=== PATIENT | female | born 1940 | race Caucasian/White ===

== ENCOUNTER → 2016-08-17 | Outpatient (CLI) | payer OTHER ==
[~2016-08-17] MED LIST: ACET325T30 PO; AMOX1TAB43 PO; ASPCH81X PO; ASPI81TA28 PO; AZIT250T PO; CHOLCAP5 PO; ESCI10TA17 PO; FOLI1TAB7 PO; L-METAB PO; LPR25 PO; PANT1TAB48 PO; POTA10CA28 PO; QUET1TAB30 PO; QUET1TAB7 PO; SIMV40TA2 PO; SULF800T23 PO; ZNTT/150 PO
[2016-08-17 12:39] LABS: URINE APPEARANCE CLEAR (CLEAR); URINE BILIRUBIN NEG (NEG); URINE COLOR YELLOW; URINE NITRITE POS (NEG); URINE SPECIFIC GRAVITY 1.025 (1.000-1.030); UROBILINOGEN NEG (NEG)
[2016-08-17 12:40] LABS: MANUAL MICROSCOPIC REQUIRED? NO; REVIEW REQ? YES
== END ==
LOC: C.LABCC 11:10
PROVIDERS: ATTEND Internal Medicine
DX: R41.82 Altered mental status, unspecified (principal)

== ENCOUNTER 2016-08-22 10:26 | Emergency (ER) | payer OTHER ==
[~2016-08-22] VITALS: Ht 162.6 cm; Wt 50.9 kg
[~2016-08-22 10:26] MED LIST changes: -ACET325T30 PO; -AMOX1TAB43 PO; -ASPCH81X PO; -AZIT250T PO; -CHOLCAP5 PO; -ESCI10TA17 PO; -L-METAB PO; -QUET1TAB30 PO; -SIMV40TA2 PO; -SULF800T23 PO; -ZNTT/150 PO
[2016-08-22 10:30] VITALS: TEMP 37.6; O2SAT 94
[2016-08-22] MEDS ORDERED: SIMV40TA2 PO (10:52)
[2016-08-22] MEDS ORDERED: ASPCH81X PO (10:52)
[2016-08-22] MEDS ORDERED: POTA10CA28 PO (10:52)
[2016-08-22] MEDS ORDERED: ESCI10TA17 PO (10:52)
[2016-08-22] MEDS ORDERED: ACET325T30 PO (10:52)
[2016-08-22] MEDS ORDERED: QUET1TAB30 PO (10:52)
[2016-08-22] MEDS ORDERED: L-METAB PO (10:52)
[2016-08-22] MEDS ORDERED: ZNTT/150 PO (10:52)
[2016-08-22] MEDS ORDERED: CHOLCAP5 PO (10:52)
[2016-08-22] MEDS ORDERED: SULF800T23 PO (10:52)
[2016-08-22 11:15] VITALS: Ht 162.6 cm; Wt 50.9 kg
[2016-08-22 11:28] LABS: BASO % 0.3 %; BASO ABS # 0.02 K/uL (0-0.2); COMPLETE YES; EOS % 0.2 %; HEMATOCRIT 35.2 % (37-47); IG% 0.2 %; LYMPH % 25.2 %; LYMPH ABS # 1.67 K/uL (1.2-3.4); MEAN CORPUSCULAR HEMOGLOBIN 31.3 pg (25-34); MEAN CORPUSCULAR HGB CONC 34.4 g/dl (32-36); MEAN PLATELET VOLUME 10.7 fL (7.4-10.4); MONO % 11.3 %; NEUT % 62.8 %; PLATELET COUNT 199 K/uL (130-400); RED BLOOD COUNT 3.87 M/uL (4.2-5.4); WHITE BLOOD COUNT 6.62 K/uL (4.8-10.8)
--- NOTE | 2016-08-22 11:30 | DIAGNOSTIC IMAGING REPORT ---
SINGLE VIEW CHEST CLINICAL HISTORY: Sepsis. FINDINGS: An AP, portable, upright chest radiograph is compared to study dated 10/10/2013. The examination is degraded by portable technique and patient rotation. The heart is top normal for projection and there is atherosclerotic calcification of the thoracic aorta. The pulmonary vasculature is noncongested. Chronic interstitial thickening is unchanged. No airspace consolidation, large pleural effusion, or pneumothorax is seen. Apical scarring is observed. The skeletal structures are osteopenic. Degenerative change and scoliosis are noted in the thoracic spine. IMPRESSION: No acute cardiopulmonary abnormality. Electronically signed by: Royal Do M.D. 08/22/2016 11:29 AM Dictated Date/Time: 08/22/2016 11:28 AM
[2016-08-22 11:38] LABS: INR 1.1 (0.9-1.1); PARTIAL THROMBOPLASTIN RATIO 1.2; PROTHROMBIN TIME (PATIENT) 11.4 SECONDS (9.0-12.0)
[2016-08-22 11:47] LABS: BUN/CREATININE RATIO 20.2 (10-20); CALCIUM 8.9 mg/dl (8.5-10.1); CREATININE 0.8 mg/dl (0.60-1.20); POTASSIUM 3.9 mmol/L (3.5-5.1)
[2016-08-22 11:50] LABS: ALB/GLOB RATIO 0.8 (0.9-2)
--- NOTE | 2016-08-22 11:54 | DIAGNOSTIC IMAGING REPORT ---
CT OF THE HEAD WITHOUT CONTRAST CLINICAL HISTORY: Confusion. Evaluate for cerebrovascular accident. COMPARISON STUDY: Head CT December 14, 2013. CT DOSE: 998.18 mGy.cm TECHNIQUE: Helical axial images of the head were obtained without IV contrast. Automated exposure control was utilized for the study. FINDINGS: This exam is mildly compromised by motion artifact. No acute intracranial hemorrhage, midline shift or mass effect is present. Ventricular system is stable. Basilar cisterns are patent. There are no extra-axial collections. White matter hypodensity suggests small vessel disease. Equivocal loss of monroe-white differentiation within the left frontoparietal region is probably artifactual. There is no mass effect. There are secretions within the mucosal thickening of the left sphenoid sinus. There is mild mucosal thickening of the ethmoid sinuses. Calvarium is suboptimally assessed due to motion artifact but no calvarial fractures are identified. IMPRESSION: 1. No acute intracranial hemorrhage or mass effect. 2. Equivocal loss of monroe-white differentiation within the left frontoparietal region. This is probably artifactual although an acute infarct could appear similar. 3. Left sphenoid sinusitis which may be acute. Electronically signed by: Valente Segura M.D. 08/22/2016 11:53 AM Dictated Date/Time: 08/22/2016 11:46 AM
--- NOTE | 2016-08-22 12:20 | EMERGENCY ROOM VISIT NOTE ---
History Report prepared by Aldo: Mirlande García Under the Supervision of: Dr. Janette Jacobs D.O. First contact with patient: 10:56 Chief Complaint: CONFUSION Stated Complaint: CONFUSION Nursing Triage Summary: Patient arrived by ambulance ALS from [facility]. Patient sent to ED for evaluation of decline in mental status. Patient does have severe dementia and is usually verbal but does not answer questions appropriatly, per staff she is less verbal today. Patient diagnosed with uti on Thursday and is currently on Bactrim for that. History of Present Illness The patient is a 75 year old female who presents to the Emergency Room via ALS from [facility] with complaints of focal weakness starting today. The patient is currently being treated for a urinary tract infection. She was started on Bactrim 4 days ago. She normally has frequent UTIs at this time of the year. The patient has not been answering questions appropriately which is normal for her. She has been favoring her left side today. Her mouth being constantly open is abnormal for her. As per EMS, her BSG was 98. She has been losing weight over the past few months. Her appetite normally fluctuates. She has had several TIA in the past few months. HPI is limited secondary to history of dementia. Additional history is obtained as per son who is at bedside. Source of History: family (son) History Limited By: dementia Onset: today Position: other (global) Quality: other (focal weakness) Review of Systems ROS is limited secondary to history of dementia. Past Medical & Surgical Medical Problems: (1) Benign hypertension (2) Bipolar disorder (3) Depressive disorder (4) Generalized non-convulsive epilepsy (5) Hypertension Nos Family History Hypertension Social History Smoking Status: Unknown if Ever Smoked Alcohol Use: none Marital Status: Housing Status: skilled nursing Occupation Status: retired Current/Historical Medications Scheduled Aspirin (Aspirin Chewable), 81 MG PO QAM Cholecalciferol (Vitamin D3), 5,000 UNITS PO QAM Escitalopram (Lexapro), 10 MG PO QAM L-Methylfolate W/ Cyanocobalam (Cerefolin), 1 TAB PO QAM Potassium Chloride (Micro-K Ext Rel), 10 MEQ PO QAM Quetiapine Fumarate (Seroquel), 12.5 MG PO HS Ranitidine (Zantac), 150 MG PO HS Simvastatin (Zocor), 40 MG PO QPM Sulfamethoxazole-Trimethoprim (Bactrim Ds 800MG/160MG), 1 TAB PO BID Scheduled PRN Acetaminophen (Acetaminophen), 650 MG PO Q6H PRN for Pain or Fever Allergies Coded Allergies: No Known Allergies (Unverified , 10/10/13) Physical Exam Vital Signs Date Time Temp Pulse Resp B/P Pulse Ox O2 Delivery O2 Flow Rate FiO2 08/22/16 17:05 84 18 127/84 93 Room Air 08/22/16 15:01 88 16 134/88 97 Room Air 08/22/16 13:35 91 08/22/16 13:01 93 18 142/73 97 Room Air 08/22/16 12:18 102 18 141/85 94 Room Air 08/22/16 10:30 37.6 92 20 127/80 94 Room Air 08/22/16 10:30 94 Room Air Physical Exam HEENT: Head - normocephalic and atraumatic. Pupils are equal, round, and reactive to light. Extraocular eye muscles are intact and sclera are anicteric. Nose - moist nasal mucosa without discharge. Mouth - moist buccal mucosa. Oropharynx is nonerythematous and there is no tonsillar exudate or edema noted. Neck: Supple; no JVD or cervical lymphadenopathy Heart: Regular rate and rhythm. There is a normal S1 and S2 with no murmurs, clicks, or gallops appreciated. Lungs: Clear to auscultation bilaterally with no wheezes, rales, or rhonchi. Abdomen: Soft, completely nontender, nondistended, with good bowel sounds. There are no palpable pulsatile masses or hepatosplenomegaly. There is no guarding, rigidity, or rebound noted. Extremities: No evidence of cyanosis, clubbing, or edema. There are easily palpable peripheral pulses. Tremulous. Neuro: Muscle strength is 4/5 in all 4 extremities. The patient has equal credit risk analyst strength and equal pedal push and pull. There are no cerebellar signs. Patient' s mouth seems to be unusually open. Medical Decision & Procedures ER Provider Diagnostic Interpretation: X-ray results as stated below per interpretation by me and the radiologist: SINGLE VIEW CHEST CLINICAL HISTORY: Sepsis. FINDINGS: An AP, portable, upright chest radiograph is compared to study dated 10/10/2013. The examination is degraded by portable technique and patient rotation. The heart is top normal for projection and there is atherosclerotic calcification of the thoracic aorta. The pulmonary vasculature is noncongested. Chronic interstitial thickening is unchanged. No airspace consolidation, large pleural effusion, or pneumothorax is seen. Apical scarring is observed. The skeletal structures are osteopenic. Degenerative change and scoliosis are noted in the thoracic spine. IMPRESSION: No acute cardiopulmonary abnormality. Electronically signed by: Ryoal Do M.D. 08/22/2016 11:29 AM Dictated Date/Time: 08/22/2016 11:[address] results as stated below per my review and the radiologist's interpretation: CT OF THE HEAD WITHOUT CONTRAST CLINICAL HISTORY: Confusion. Evaluate for cerebrovascular accident. COMPARISON STUDY: Head CT December 14, 2013. CT DOSE: 998.18 mGy.cm TECHNIQUE: Helical axial images of the head were obtained without IV contrast. Automated exposure control was utilized for the study. FINDINGS: This exam is mildly compromised by motion artifact. No acute intracranial hemorrhage, midline shift or mass effect is present. Ventricular system is stable. Basilar cisterns are patent. There are no extra-axial collections. White matter hypodensity suggests small vessel disease. Equivocal loss of monroe-white differentiation within the left frontoparietal region is probably artifactual. There is no mass effect. There are secretions within the mucosal thickening of the left sphenoid sinus. There is mild mucosal thickening of the ethmoid sinuses. Calvarium is suboptimally assessed due to motion artifact but no calvarial fractures are identified. IMPRESSION: 1. No acute intracranial hemorrhage or mass effect. 2. Equivocal loss of monroe-white differentiation within the left frontoparietal region. This is probably artifactual although an acute infarct could appear similar. 3. Left sphenoid sinusitis which may be acute. Electronically signed by: Valente Segura M.D. 08/22/2016 11:53 AM Dictated Date/Time: 08/22/2016 11:46 AM Laboratory Results 08/22/16 11:00 Red Blood Count 3.87, Mean Corpuscular Volume 91.0, Mean Corpuscular Hemoglobin 31.3, Mean Corpuscular Hemoglobin Concent 34.4, Mean Platelet Volume 10.7, Neutrophils (%) (Auto) 62.8, Lymphocytes (%) (Auto) 25.2, Monocytes (%) (Auto) 11.3, Eosinophils (%) (Auto) 0.2, Basophils (%) (Auto) 0.3, Neutrophils # (Auto ) 4.16, Lymphocytes # (Auto) 1.67, Monocytes # (Auto) 0.75, Eosinophils # (Auto ) 0.01, Basophils # (Auto) 0.02 08/22/16 11:00 Test 08/22/16 10:59 08/22/16 11:00 08/22/16 11:15 08/22/16 12:10 Bedside Glucose 98 mg/dl (70-90) White Blood Count 6.62 K/uL (4.8-10.8) Red Blood Count 3.87 M/uL (4.2-5.4) Hemoglobin 12.1 g/dL (12.0-16.0) Hematocrit 35.2 % (37-47) Mean Corpuscular Volume 91.0 fL (80-100) Mean Corpuscular Hemoglobin 31.3 pg (25-34) Mean Corpuscular Hemoglobin Concent 34.4 g/dl (32-36) Platelet Count 199 K/uL (130-400) Mean Platelet Volume 10.7 fL (7.4-10.4) Neutrophils (%) (Auto) 62.8 % Lymphocytes (%) (Auto) 25.2 % Monocytes (%) (Auto) 11.3 % Eosinophils (%) (Auto) 0.2 % Basophils (%) (Auto) 0.3 % Neutrophils # (Auto) 4.16 K/uL (1.4-6.5) Lymphocytes # (Auto) 1.67 K/uL (1.2-3.4) Monocytes # (Auto) 0.75 K/uL (0.11-0.59) Eosinophils # (Auto) 0.01 K/uL (0-0.5) Basophils # (Auto) 0.02 K/uL (0-0.2) RDW Standard Deviation 43.4 fL (36.4-46.3) RDW Coefficient of Variation 13.1 % (11.5-14.5) Immature Granulocyte % (Auto) 0.2 % Immature Granulocyte # (Auto) 0.01 K/uL (0.00-0.02) Prothrombin Time 11.4 SECONDS (9.0-12.0) Prothromb Time International Ratio 1.1 (0.9-1.1) Activated Partial Thromboplast Time 30.9 SECONDS (21.0-31.0) Partial Thromboplastin Ratio 1.2 Anion Gap 11.0 mmol/L (3-11) Est Creatinine Clear Calc Drug Dose 48.8 ml/min Estimated GFR () 83.6 Estimated GFR (Non- 72.1 BUN/Creatinine Ratio 20.2 (10-20) Calcium Level 8.9 mg/dl (8.5-10.1) Total Bilirubin 0.4 mg/dl (0.2-1) Aspartate Amino Transf (AST/SGOT) 25 U/L (15-37) Alanine Aminotransferase (ALT/SGPT) 23 U/L (12-78) Alkaline Phosphatase 60 U/L (45-117) Total Protein 7.9 gm/dl (6.4-8.2) Albumin 3.6 gm/dl (3.4-5.0) Globulin 4.3 gm/dl (2.5-4.0) Albumin/Globulin Ratio 0.8 (0.9-2) Bedside Lactic Acid Venous 1.07 mmol/L (0.90-1.70) Urine Color DK YELLOW Urine Appearance CLEAR (CLEAR) Urine pH 6.0 (4.5-7.5) Urine Specific [place] 1.028 (1.000-1.030) Urine Protein NEG (NEG) Urine Glucose (UA) NEG (NEG) Urine Ketones TRACE (NEG) Urine Occult Blood NEG (NEG) Urine Nitrite NEG (NEG) Urine Bilirubin NEG (NEG) Urine Urobilinogen NEG (NEG) Urine Leukocyte Esterase NEG (NEG) Urine WBC (Auto) 1-5 /hpf (0-5) Urine RBC (Auto) 0-4 /hpf (0-4) Urine Hyaline Casts (Auto) 1-5 /lpf (0-5) Urine Epithelial Cells (Auto) 5-10 /lpf (0-5) Urine Bacteria (Auto) NEG (NEG) Urine Renal Epithelial Cells /lpf (0-5) Urine Mucus PRESENT (NONE PRSENT) Laboratory results per my review. ECG Indication: weakness (focal) Rate (beats per minute): 89 Rhythm: normal sinus Findings: no acute ischemic change, no ectopy ED Course 1056: Past medical records reviewed. The patient was evaluated in room A09B. A complete history and physical exam was performed. Labs were drawn as above. A urinalysis was obtained. 1320: I reevaluated the patient who is resting comfortably. 1338: Upon reevaluation, the patient is doing well. I discussed findings and results with the patient's son and . They verbalized agreement of the treatment plan. The patient will be discharged home. 1450: I had a long conversation with the patient's and son. They explained that the patient has now been having tremors in her extremities that have been lasting for about 5-7 seconds. She does not have any seizure-like symptoms. She does not appear to be in pain. I did witness these episodes of tremors. I discussed the options of either admitting or discharging the patient. The patient's and son agreed that they did not want any additional work up done. The patient will be discharged back to [facility]. We did sit the patient more upright. She was easily able to eat and drink. Her symptoms now seem minimal Medical Decision This is a 75 year old female who presents to the Emergency Room with a chief complaint of focal weakness. Differential diagnosis includes but is not limited to TIA, CVA, sepsis, UTI, electrolyte abnormality, hypoglycemia. Her labs showed lactic acid of 1.07, glucose 98, normal renal function and LFTs , urinalysis was positive for ketones, normal coags, no leucocytosis, stable H& H. The patient has been explains that she does have occasional episodes where she becomes more weak than usual. She has recently finished a course of antibiotics for urinary tract infection. Urinalysis today does not appear to be infected. CT scan of the brain showed no new acute findings. The patient is resting comfortably at this time. She is not currently experiencing those episodes of tremors. I have asked that they follow-up with the PCP at [facility] if these episodes persist. The patient does ambulate without assistance to sleep. Because she seems more unsteady at this time, I recommended assistance with ambulation. Impression Primary Impression: Altered mental status Scribe Attestation The scribe's documentation has been prepared under my direction and personally reviewed by me in its entirety. I confirm that the note above accurately reflects all work, treatment, procedures, and medical decision making performed by me. Departure Information Dispostion Home / Self-Care Referrals [facility] (PCP) Forms HOME CARE DOCUMENTATION FORM, IMPORTANT VISIT INFORMATION, WORK / SCHOOL INSTRUCTIONS Patient Instructions My [facility]
[2016-08-22 12:26] LABS: URINE APPEARANCE CLEAR (CLEAR); URINE COLOR DK YELLOW; URINE NITRITE NEG (NEG); URINE SPECIFIC GRAVITY 1.028 (1.000-1.030); UROBILINOGEN NEG (NEG); ZZURINE CULT IF INDIC CATH NO
[2016-08-22 12:42] LABS: MANUAL MICROSCOPIC REQUIRED? NO; REVIEW REQ? YES; URINE BILIRUBIN NEG (NEG)
[2016-08-22 12:47] LABS: URINE MUCUS PRESENT (NONE PRSENT)
[2016-08-22 17:05] VITALS: BP 127/84; PULSE 84; O2SAT 93
== END 2016-08-22 17:15 | disposition home or self-care (01) ==
LOC: EDUNIT# 10:26 → C.EDA 10:29
DX: R41.82 Altered mental status, unspecified (principal); I10 Essential (primary) hypertension; F31.9 Bipolar disorder, unspecified; G40.909 Epilepsy, unspecified, not intractable, without status epilepticus; Z82.49 Family history of ischemic heart disease and other diseases of the circulatory system

== ENCOUNTER 2016-08-23 19:29 | Inpatient (IN) | payer OTHER ==
[~2016-08-23] VITALS: Ht 162.6 cm; Wt 46.0 kg
[~2016-08-23 19:29] MED LIST changes: +ACET325T30 PO; +ASPCH81X PO; -ASPI81TA28 PO; +CHOLCAP5 PO; +ESCI10TA17 PO; -FOLI1TAB7 PO; +L-METAB PO; -LPR25 PO; -PANT1TAB48 PO; +QUET1TAB30 PO; -QUET1TAB7 PO; +SIMV40TA2 PO; +SULF800T23 PO; +ZNTT/150 PO
[2016-08-23 19:30] VITALS: Ht 162.6 cm; Wt 46.0 kg
[2016-08-23] MEDS ORDERED: SODIUM CHLORIDE 0.9% 1000ML 1,000 ML IV STA (20:03)
[2016-08-23] MEDS ORDERED: CEFTRIAXONE SOD INJ 1 GM ADDVIAL IV STA (20:03)
--- NOTE | 2016-08-23 20:23 | DIAGNOSTIC IMAGING REPORT ---
CHEST ONE VIEW PORTABLE CLINICAL HISTORY: EVALUATE ALTERED MENTAL STATUS/WEAKNESS COMPARISON STUDY: 08/22/2016 FINDINGS: Small developing infiltrate left base. Lungs otherwise appear clear. No evidence for cardiac enlargement. IMPRESSION: Small parenchymal infiltrate left base. Electronically signed by: Adalid Berman M.D. 08/23/2016 8:22 PM Dictated Date/Time: 08/23/2016 8:22 PM
[2016-08-23 20:49] LABS: MEAN CELL VOLUME 90.2 fL (80-100); MEAN CORPUSCULAR HEMOGLOBIN 31.3 pg (25-34); MEAN CORPUSCULAR HGB CONC 34.7 g/dl (32-36); MEAN PLATELET VOLUME 10.6 fL (7.4-10.4); PLATELET COUNT 195 K/uL (130-400); RED BLOOD COUNT 3.77 M/uL (4.2-5.4); WHITE BLOOD COUNT 11.23 K/uL (4.8-10.8)
[2016-08-23 21:05] LABS: INR 1.1 (0.9-1.1); PARTIAL THROMBOPLASTIN RATIO 1.2; PROTHROMBIN TIME (PATIENT) 11.6 SECONDS (9.0-12.0)
[2016-08-23 21:10] LABS: BASO % 0.3 %; BASO ABS # 0.03 K/uL (0-0.2); COMPLETE YES; EOS % 0.2 %; IG% 0.3 %; LYMPH % 17.3 %; LYMPH ABS # 1.94 K/uL (1.2-3.4); MONO % 7.9 %
[2016-08-23 21:13] LABS: ALT/SGPT 25 U/L (12-78); AST/SGOT 32 U/L (15-37); BLOOD UREA NITROGEN 18 mg/dl (7-18); BUN/CREATININE RATIO 21.6 (10-20); CALCIUM 8.6 mg/dl (8.5-10.1); CARBON DIOXIDE 23 mmol/L (21-32); CHLORIDE 106 mmol/L (98-107); CREATININE 0.82 mg/dl (0.60-1.20); GLUCOSE 112 mg/dl (70-99); MAGNESIUM 2.1 mg/dl (1.8-2.4); POTASSIUM 3.5 mmol/L (3.5-5.1); SODIUM 139 mmol/L (136-145)
[2016-08-23 21:21] LABS: ALKALINE PHOSPHATASE 57 U/L (45-117)
--- NOTE | 2016-08-23 21:34 | DIAGNOSTIC IMAGING REPORT ---
HEAD CT NONCONTRAST CT DOSE: 843.08 mGy.cm HISTORY: Mental status change EVALUATE ALTERED MENTAL STATUS/WEAKNESS TECHNIQUE: Multiaxial CT images of the head were performed without the use of intravenous contrast. Comparison: 08/22/2016 Findings: Fluid level within left maxillary sinus. Scattered areas of chronic encephalomalacia and atrophic change. No acute or interval process as compared to the prior study. Considerable chronic small vessel change. No evidence for acute intracranial hemorrhage. Impression: 1. Age-related atrophy and chronic small vessel change. 2. No acute intracranial abnormality. 3. Acute left maxillary sinusitis . Chronic sphenoid sinus mucosal thickening Electronically signed by: Adalid Berman M.D. 08/23/2016 9:32 PM Dictated Date/Time: 08/23/2016 9:28 PM
[2016-08-23] MEDS ORDERED: PIPERACILLIN/TAZOBACTAM 4.5 GM/100ML D5W IV STA (21:56)
[2016-08-23] MEDS ORDERED: LEVAQUIN 750MG / 150ML D5W IV STA (21:56)
--- NOTE | 2016-08-23 22:21 | EMERGENCY ROOM VISIT NOTE ---
History Report prepared by Aldo: Jl Chiang Under the Supervision of: Dr. Jose D Gregorio D.O. First contact with patient: 19:25 Stated Complaint: SEIZURE History of Present Illness The patient is a 75 year old female who presents to the Emergency Room via ambulance from [facility] with complaints of a sudden seizure beginning just prior to arrival. As per EMS, the patient was given 4 Ativan. He notes the patient had an initial pulse ox of 90 and was placed on 4L NC of oxygen. EMS states the patient then had a pulse ox of around 98. He notes the patient had a BSG of 89. EMS states the patient was seen in the ED last night for a UTI, and her noticed tremors at that time last night. EMS notes the patient did not have any post ictal periods, but she fell asleep after receiving the Ativan. The history is limited secondary to the patient's altered mental status. Source of History: EMS History Limited By: AMS Onset: just prior to arrival Position: other (global) Quality: other (seizure) Timing: other (sudden) Review of Systems The HPI and ROS are limited secondary to the patient's altered mental status. Past Medical & Surgical Medical Problems: (1) Benign hypertension (2) Bipolar disorder (3) Depressive disorder (4) Generalized non-convulsive epilepsy (5) Hypertension Nos Family History Hypertension Social History Smoking Status: Unknown if Ever Smoked Alcohol Use: none Marital Status: Housing Status: snf Occupation Status: retired Current/Historical Medications Scheduled Aspirin (Aspirin Chewable), 81 MG PO QAM Cholecalciferol (Vitamin D3), 5,000 UNITS PO QAM Escitalopram (Lexapro), 10 MG PO QAM L-Methylfolate W/ Cyanocobalam (Cerefolin), 1 TAB PO QAM Potassium Chloride (Micro-K Ext Rel), 10 MEQ PO QAM Quetiapine Fumarate (Seroquel), 12.5 MG PO HS Ranitidine (Zantac), 150 MG PO HS Simvastatin (Zocor), 40 MG PO QPM Sulfamethoxazole-Trimethoprim (Bactrim Ds 800MG/160MG), 1 TAB PO BID Scheduled PRN Acetaminophen (Acetaminophen), 650 MG PO Q6H PRN for Pain or Fever Allergies Coded Allergies: No Known Allergies (Unverified , 08/23/16) Physical Exam Vital Signs Date Time Temp Pulse Resp B/P Pulse Ox O2 Delivery O2 Flow Rate FiO2 08/23/16 21:40 83 17 126/69 100 Nasal Cannula 4.0 08/23/16 21:01 91 20 115/69 94 Nasal Cannula 4.0 08/23/16 20:38 89 08/23/16 20:31 90 20 107/66 98 Non-Rebreather 10.0 08/23/16 20:10 99 Non-Rebreather 10.0 08/23/16 20:05 88 Nasal Cannula 4.0 08/23/16 20:01 90 21 129/77 93 Nasal Cannula 4.0 08/23/16 19:36 107 08/23/16 19:30 38.8 107 27 110/48 89 Room Air Physical Exam CONSTITUTIONAL/VITAL SIGNS: Reviewed / noted above. GENERAL: Non-toxic in appearance. INTEGUMENTARY: Warm, dry, and [place]. HEAD: Normocephalic. No obvious head trauma. EYES: without scleral icterus or trauma. ENT/OROPHARYNX: clear and moist. LYMPHADENOPATHY/NECK: Is supple without lymphadenopathy or meningismus. RESPIRATORY: Respirations are shallow. Slight rhonchi bilaterally. CARDIOVASCULAR: Regular rate and rhythm. GI/ABDOMEN: Soft and nontender. No organomegaly or pulsatile mass. No rebound or guarding. Normal bowel sounds. EXTREMITIES: Warm and well perfused. BACK: No CVA tenderness. NEUROLOGICAL: Patient is currently sleeping after receiving 4 mg of IV Ativan. The patient has an occasional tremor in her arms or legs. Does not respond to painful stimuli. PSYCHIATRIC: normal affect. MUSCULOSKELETAL: Normally developed with good muscle tone. Medical Decision & Procedures ER Provider Diagnostic Interpretation: Radiology results as stated below per my review and radiologist interpretation: CHEST ONE VIEW PORTABLE CLINICAL HISTORY: EVALUATE ALTERED MENTAL STATUS/WEAKNESS COMPARISON STUDY: 08/22/2016 FINDINGS: Small developing infiltrate left base. Lungs otherwise appear clear. No evidence for cardiac enlargement. IMPRESSION: Small parenchymal infiltrate left base. Electronically signed by: Adalid Berman M.D. 08/23/2016 8:[address]AST CT DOSE: 843.08 mGy.cm HISTORY: Mental status change EVALUATE ALTERED MENTAL STATUS/WEAKNESS TECHNIQUE: Multiaxial CT images of the head were performed without the use of intravenous contrast. Comparison: 08/22/2016 Findings: Fluid level within left maxillary sinus. Scattered areas of chronic encephalomalacia and atrophic change. No acute or interval process as compared to the prior study. Considerable chronic small vessel change. No evidence for acute intracranial hemorrhage. Impression: 1. Age-related atrophy and chronic small vessel change. 2. No acute intracranial abnormality. 3. Acute left maxillary sinusitis . Chronic sphenoid sinus mucosal thickening Electronically signed by: Adalid Berman M.D. 08/23/2016 9:32 PM Laboratory Results 08/23/16 20:25 Red Blood Count 3.77, Mean Corpuscular Volume 90.2, Mean Corpuscular Hemoglobin 31.3, Mean Corpuscular Hemoglobin Concent 34.7, Mean Platelet Volume 10.6, Neutrophils (%) (Auto) 74.0, Lymphocytes (%) (Auto) 17.3, Monocytes (%) (Auto) 7.9, Eosinophils (%) (Auto) 0.2, Basophils (%) (Auto) 0.3, Neutrophils # (Auto) 8.32, Lymphocytes # (Auto) 1.94, Monocytes # (Auto) 0.89, Eosinophils # (Auto) 0.02, Basophils # (Auto) 0.03 08/23/16 20:25 Test 08/23/16 20:25 08/23/16 21:40 White Blood Count 11.23 K/uL (4.8-10.8) Red Blood Count 3.77 M/uL (4.2-5.4) Hemoglobin 11.8 g/dL (12.0-16.0) Hematocrit 34.0 % (37-47) Mean Corpuscular Volume 90.2 fL (80-100) Mean Corpuscular Hemoglobin 31.3 pg (25-34) Mean Corpuscular Hemoglobin Concent 34.7 g/dl (32-36) Platelet Count 195 K/uL (130-400) Mean Platelet Volume 10.6 fL (7.4-10.4) Neutrophils (%) (Auto) 74.0 % Lymphocytes (%) (Auto) 17.3 % Monocytes (%) (Auto) 7.9 % Eosinophils (%) (Auto) 0.2 % Basophils (%) (Auto) 0.3 % Neutrophils # (Auto) 8.32 K/uL (1.4-6.5) Lymphocytes # (Auto) 1.94 K/uL (1.2-3.4) Monocytes # (Auto) 0.89 K/uL (0.11-0.59) Eosinophils # (Auto) 0.02 K/uL (0-0.5) Basophils # (Auto) 0.03 K/uL (0-0.2) RDW Standard Deviation 41.6 fL (36.4-46.3) RDW Coefficient of Variation 12.6 % (11.5-14.5) Immature Granulocyte % (Auto) 0.3 % Immature Granulocyte # (Auto) 0.03 K/uL (0.00-0.02) Red Blood Cell Morphology Unremarkable Prothrombin Time 11.6 SECONDS (9.0-12.0) Prothromb Time International Ratio 1.1 (0.9-1.1) Activated Partial Thromboplast Time 32.3 SECONDS (21.0-31.0) Partial Thromboplastin Ratio 1.2 Anion Gap 10.0 mmol/L (3-11) Est Creatinine Clear Calc Drug Dose 47.6 ml/min Estimated GFR () 81.1 Estimated GFR (Non- 70.0 BUN/Creatinine Ratio 21.6 (10-20) Calcium Level 8.6 mg/dl (8.5-10.1) Magnesium Level 2.1 mg/dl (1.8-2.4) Total Bilirubin 0.5 mg/dl (0.2-1) Direct Bilirubin 0.1 mg/dl (0-0.2) Aspartate Amino Transf (AST/SGOT) 32 U/L (15-37) Alanine Aminotransferase (ALT/SGPT) 25 U/L (12-78) Alkaline Phosphatase 57 U/L (45-117) Total Creatine Kinase 128 U/L (26-192) Creatine Kinase MB 1.3 ng/ml (0.5-3.6) Creatine Kinase MB Ratio 1.0 (0-3.0) Troponin I < 0.015 ng/ml (0-0.045) Total Protein 7.6 gm/dl (6.4-8.2) Albumin 3.2 gm/dl (3.4-5.0) Lipase 280 U/L (73-393) Thyroid Stimulating Hormone (TSH) 1.640 uIu/ml (0.300-4.500) Influenza Type A Antigen Neg for Influ A (NEG) Influenza Type B Antigen Neg for Influ B (NEG) Laboratory results as stated above per my review. Medications Administered Medications (Trade) Dose Ordered Sig/Selene Route Start Time Stop Time Status Last Admin Dose Admin Sodium Chloride (Nss 1000ml) 1,000 ml @ 999 mls/hr Q1H1M STAT IV 08/23/16 20:03 08/23/16 21:03 DC 08/23/16 20:26 999 MLS/HR Ceftriaxone Sodium (Rocephin Inj) 1 gm NOW STAT IV 08/23/16 20:03 08/23/16 20:05 DC 08/23/16 20:26 1 GM Piperacillin Sod/ Tazobactam Sod (Zosyn Iv) 4.5 gm NOW STAT IV 08/23/16 21:56 08/23/16 21:57 DC 08/23/16 22:05 4.5 GM ECG Indication: altered mental status Rate (beats per minute): 89 Rhythm: normal sinus Findings: no ectopy, other (no acute injury) ED Course 1931: Previous medical records were reviewed. The patient was evaluated in room B1. A complete history and physical examination was performed. 2002: Ordered Rocephin Inj 1 gm IV, Sodium Chloride 1,000 ml @ 999 mls/hr IV. 2154: I spoke to ANKITA Courtney (Internal Medicine) about the patient's case, and he will follow the patient for further evaluation. 2157: Reevaluated and updated the patient's at this time. Medical Decision Etiologies such as metabolic, infection, hypoglycemia, electrolyte abnormalities , cardiac sources, intracerebral event, toxicologic, neurologic, as well as others were entertained. This is a 75-year-old female who is brought to the emergency department with a chief complaint of tremors or seizure-like activity. The patient was having full body tremors involving the arms and legs but was awake during these episodes. She is brought here by EMS and given 4 mg of IV Ativan which caused her to become sedated. The patient was unable to provide any details. She is here yesterday for similar symptoms. Today she has a fever of 38.8. Oxygen saturations dropped into the high 80s. Chest x-ray reveals pneumonia. CT scan of the head revealed sinusitis. The patient does have chronic dementia and at baseline and does not communicate. CBC was unremarkable. Complete medical panel was unremarkable. Troponin was negative. TSH was normal. The patient was treated with IV Rocephin as well as IV Zofran and IV Levaquin. She'll be seen by the hospitalist for further inpatient evaluation. Consults Time Called: 2152 Consulting Physician: ANKITA Courtney (Internal Medicine) Returned Call: 2154 I spoke to ANKITA Courtney (Internal Medicine) about the patient's case, and he will follow the patient for further evaluation. Impression Primary Impression: Pneumonia Additional Impressions: Sinusitis Coarse tremors Scribe Attestation The scribe's documentation has been prepared under my direction and personally reviewed by me in its entirety. I confirm that the note above accurately reflects all work, treatment, procedures, and medical decision making performed by me. Departure Information Dispostion Being Evaluated By Hospitalist (ANKITA Courtney (Internal Medicine) ) [facility] Problem Qualifiers
[2016-08-23] MEDS ORDERED: LORAZEPAM 2 MG/ML 1 ML VIAL IV PRN (22:45)
[2016-08-23] MEDS ORDERED: MAGNESIUM HYDROXIDE SUSP 30 ML UDC PO PRN (22:45)
[2016-08-23] MEDS ORDERED: POLYETHYLENE (MIRALAX) 17 GM PACK PO PRN (22:45)
[2016-08-23] MEDS ORDERED: ACETAMINOPHEN 325 MG TAB PO PRN ×2 (22:45)
[2016-08-23] MEDS ORDERED: ALUMINUM/MAGNESIUM/SIMETH (MAALOX MAX) 30 ML UDC PO PRN (22:45)
[2016-08-23] MEDS ORDERED: ONDANSETRON INJ 2 MG/ML 2 ML VIAL IV PRN (22:45)
[2016-08-23] MEDS ORDERED: ALBUT/IPRATROP 3MG/0.5MG NEB 3 ML VIAL INH PRN (23:00)
[2016-08-23] MEDS ORDERED: LEVETIRACETAM IV 1,000 MG in DEXTROSE 5% 100ML 100 ML IV SCH (23:00)
[2016-08-23 23:41] LABS: INFLUENZA A PCR Neg for Influ A (NEG); INFLUENZA B PCR Neg for Influ B (NEG)
[2016-08-24] VITALS (7 sets, daily range): BP systolic 102–123; BP diastolic 60–74; PULSE 74–81; TEMP 35.9–36.9; O2SAT 93–96; BMI 18.4
[2016-08-24] MEDS ORDERED: ZITHROMAX PHARMACY CONSULT IN PROGRESS PRN (01:45)
[2016-08-24] MEDS ORDERED: LORAZEPAM INJ 2 MG in SYRINGE 1 ML IV PRN (01:45)
[2016-08-24] MEDS ORDERED: INFLUENZA ADMINISTRATION CHARGE ONE (01:45)
[2016-08-24] MEDS ORDERED: PNEUMOCOCCAL POLYSACCHARIDES 25 MCG/0.5 ML VIAL/SYR IM. ONE (01:45)
[2016-08-24] MEDS ORDERED: PNEUMOCOCCAL ADMINISTRATION CHARGE ONE (01:45)
[2016-08-24] MEDS ORDERED: INFLUENZA VIRUS QUAD VACCINE 0.5 ML SYR IM. ONE (01:45)
[2016-08-24] MEDS ORDERED: AMPICILLIN/SULBACTAM CONSULT ACTIVE PRN ×2 (01:45)
--- NOTE | 2016-08-24 01:47 | History and Physical ---
History & Physical Date & Time of Service: Aug 24, 2016 at 01:24 Chief Complaint: Altered Mental Status, Seizure Primary Care Physician: Stephanie Jones History of Present Illness Source: patient 75 y/o F w/advanced dementia, bipolar disease, HTN who resides in a nursing facility. Pt's was with her during the day and witnessed her exhibit shaking of her upper and lower extremities which was interpreted as a seizure. He filmed this on his phone. Upon watching the video it was noted that the pt was awake during her tremors and therefore the tremors were more likely compatible with rigors. She had a temp of 38 on arrival to the ER and a CXR is consistent with a RLL pneumonia. She was in the ER one day prior and was treated for a UTI however on review her UA is negative. The pt received 4mg of Ativan on route to the hospital to terminate her "seizure". She is alseep at the time of admission although she responds to tactile stimulus. Her states that he is not familiar with the pts medical history. There was no reported productive cough or hypoxia. She does appear congested at the time of admission. Past Medical/Surgical History Medical Problems: (1) Benign hypertension Status: Chronic (2) Bipolar disorder Status: Chronic (3) Depressive disorder Status: Chronic Family History Hypertension Cannot obtain Social History Smoking Status: Unknown if Ever Smoked Marital Status: Housing status: lives with family Occupational Status: retired Immunizations History of Influenza Vaccine: Yes Influenza Vaccine Date: Mar 20, 2011 History of Tetanus Vaccine?: No History of Pneumococcal: Yes Pneumococcal Date: May 20, 2008 History of Hepatitis B Vaccine: No Hepatitis Immunization Date: Mar 25, 2000 Allergies Coded Allergies: No Known Allergies (Unverified , 08/23/16) Home Medications Scheduled Aspirin (Aspirin Chewable), 81 MG PO QAM Cholecalciferol (Vitamin D3), 5,000 UNITS PO QAM Escitalopram (Lexapro), 10 MG PO QAM L-Methylfolate W/ Cyanocobalam (Cerefolin), 1 TAB PO QAM Potassium Chloride (Micro-K Ext Rel), 10 MEQ PO QAM Quetiapine Fumarate (Seroquel), 12.5 MG PO HS Ranitidine (Zantac), 150 MG PO HS Simvastatin (Zocor), 40 MG PO QPM Sulfamethoxazole-Trimethoprim (Bactrim Ds 800MG/160MG), 1 TAB PO BID Scheduled PRN Acetaminophen (Acetaminophen), 650 MG PO Q6H PRN for Pain or Fever Review of Systems Cannot obtain Physical Exam Vital Signs Date Time Temp Pulse Resp B/P Pulse Ox O2 Delivery O2 Flow Rate FiO2 08/24/16 00:35 36.4 79 14 110/60 94 Room Air 08/24/16 00:20 72 19 98 Nasal Cannula 4.0 08/24/16 00:05 73 21 98 08/24/16 00:01 97/56 08/23/16 23:50 73 15 94 08/23/16 23:45 74 16 92 08/23/16 23:31 86/53 08/23/16 23:30 75 17 94 08/23/16 23:15 77 16 97 08/23/16 23:01 102/57 08/23/16 23:00 81 16 96 08/23/16 22:45 77 24 99 08/23/16 22:31 115/56 08/23/16 22:30 76 16 100 08/23/16 22:15 76 16 100 08/23/16 22:01 125/69 08/23/16 22:00 81 16 100 08/23/16 21:40 83 17 126/69 100 Nasal Cannula 4.0 08/23/16 21:01 91 20 115/69 94 Nasal Cannula 4.0 08/23/16 20:38 89 08/23/16 20:31 90 20 107/66 98 Non-Rebreather 10.0 08/23/16 20:10 99 Non-Rebreather 10.0 08/23/16 20:05 88 Nasal Cannula 4.0 08/23/16 20:01 90 21 129/77 93 Nasal Cannula 4.0 08/23/16 19:36 107 08/23/16 19:30 38.8 107 27 110/48 89 Room Air General Appearance: + pertinent finding (Thin, somnolent elderly female in no distress - responds to tactile stimulus) Head: normocephalic, atraumatic Eyes: normal inspection, PERRL ENT: normal ENT inspection, + pertinent finding (cannot examine oral cavity) Neck: supple, no adenopathy, thyroid normal, no JVD Respiratory/Chest: chest non-tender, lungs clear, + pertinent finding (Large air noises - poor effort - no audible crackles , wheezing) Cardiovascular: regular rate, rhythm, no edema, no gallop, no JVD, no murmur, normal peripheral pulses Abdomen/GI: normal bowel sounds, non tender, soft Back: normal inspection Extremities/Musculoskelatal: normal inspection, no pedal edema Neurologic/Psych: + pertinent finding (Pupils equal/reactive - responds to tactile stim - moves all extrems) Skin: normal color, warm/dry, no rash Diagnostics Laboratory Results Results Past 24 Hours Test 08/23/16 20:25 08/23/16 21:40 Range/Units White Blood Count 11.23 4.8-10.8 K/uL Red Blood Count 3.77 4.2-5.4 M/uL Hemoglobin 11.8 12.0-16.0 g/dL Hematocrit 34.0 37-47 % Mean Corpuscular Volume 90.2 80-100 fL Mean Corpuscular Hemoglobin 31.3 25-34 pg Mean Corpuscular Hemoglobin Concent 34.7 32-36 g/dl Platelet Count 195 130-400 K/uL Mean Platelet Volume 10.6 7.4-10.4 fL Neutrophils (%) (Auto) 74.0 % Lymphocytes (%) (Auto) 17.3 % Monocytes (%) (Auto) 7.9 % Eosinophils (%) (Auto) 0.2 % Basophils (%) (Auto) 0.3 % Neutrophils # (Auto) 8.32 1.4-6.5 K/uL Lymphocytes # (Auto) 1.94 1.2-3.4 K/uL Monocytes # (Auto) 0.89 0.11-0.59 K/uL Eosinophils # (Auto) 0.02 0-0.5 K/uL Basophils # (Auto) 0.03 0-0.2 K/uL RDW Standard Deviation 41.6 36.4-46.3 fL RDW Coefficient of Variation 12.6 11.5-14.5 % Immature Granulocyte % (Auto) 0.3 % Immature Granulocyte # (Auto) 0.03 0.00-0.02 K/uL Red Blood Cell Morphology Unremarkable Prothrombin Time 11.6 9.0-12.0 SECONDS Prothromb Time International Ratio 1.1 0.9-1.1 Activated Partial Thromboplast Time 32.3 21.0-31.0 SECONDS Partial Thromboplastin Ratio 1.2 Sodium Level 139 136-145 mmol/L Potassium Level 3.5 3.5-5.1 mmol/L Chloride Level 106 98-107 mmol/L Carbon Dioxide Level 23 21-32 mmol/L Anion Gap 10.0 3-11 mmol/L Blood Urea Nitrogen 18 7-18 mg/dl Creatinine 0.82 0.60-1.20 mg/dl Est Creatinine Clear Calc Drug Dose 47.6 ml/min Estimated GFR () 81.1 Estimated GFR (Non- 70.0 BUN/Creatinine Ratio 21.6 10-20 Random Glucose 112 70-99 mg/dl Calcium Level 8.6 8.5-10.1 mg/dl Magnesium Level 2.1 1.8-2.4 mg/dl Total Bilirubin 0.5 0.2-1 mg/dl Direct Bilirubin 0.1 0-0.2 mg/dl Aspartate Amino Transf (AST/SGOT) 32 15-37 U/L Alanine Aminotransferase (ALT/SGPT) 25 12-78 U/L Alkaline Phosphatase 57 45-117 U/L Total Creatine Kinase 128 26-192 U/L Creatine Kinase MB 1.3 0.5-3.6 ng/ml Creatine Kinase MB Ratio 1.0 0-3.0 Troponin I < 0.015 0-0.045 ng/ml Total Protein 7.6 6.4-8.2 gm/dl Albumin 3.2 3.4-5.0 gm/dl Lipase 280 73-393 U/L Thyroid Stimulating Hormone (TSH) 1.640 0.300-4.500 uIu/ml Influenza Type A (RT-PCR) Neg for Influ A NEG Influenza Type A Antigen Neg for Influ A NEG Influenza Type B Antigen Neg for Influ B NEG Influenza Type B (RT-PCR) Neg for Influ B NEG Microbiology Results 08/23/16 Blood Culture, Received Pending 08/23/16 Blood Culture, Received Pending 08/23/16 Urine Culture, Received Pending Diagnostic Radiology IMPRESSION: Small parenchymal infiltrate left base Impression Assessment and Plan 75 y/o F w/advanced dementia, bipolar disease, HTN who resides in a nursing facility. Pt's was with her during the day and witnessed her exhibit shaking of her upper and lower extremities which was interpreted as a seizure. He filmed this on his phone. Upon watching the video it was noted that the pt was awake during her tremors and therefore the tremors were more likely compatible with rigors. She had a temp of 38 on arrival to the ER and a CXR is consistent with a RLL pneumonia. She was in the ER one day prior and was treated for a UTI however on review her UA is negative. The pt received 4mg of Ativan on route to the hospital to terminate her "seizure". She is alseep at the time of admission although she responds to tactile stimulus. Her states that he is not familiar with the pts medical history. There was no reported productive cough or hypoxia. She does appear congested at the time of admission. 1) PNM - placed on Unasyn and Zithro to cover CAP and aspiration - I do not feel she merits full HCAP treatment at present 2) Rigors vs seizure - as she was awake while shaking and the symptoms were B/L this by definition was not a seizure - she will be monitored on telemetry - we will hold further Ativan at present. 3) Dementia - Bipolar disease - Cont Seroquel when awake 4) HTN - cont Metoprolol Full code - Heparin prophylaxis Total time for this admit including review of labs, imaging, records - discussion with ER attending family - 34 min Level of Care Telemetry Advanced Directives Existing Living Will: Yes Resuscitation Status FULL RESUSCITATION VTE Prophylaxis VTE Risk Assessment Done? Y/N: Yes Risk Level: Moderate Given or contraindicated: Unfractionated heparin SQ
[2016-08-24] MEDS: AZITHROMYCIN IV 500 MG in DEXTROSE 5% 250ML 250 ML IV SCH (02:02)
[2016-08-24] MEDS: D5NSS + 20MEQ KCL 1,000 ML IV SCH ×2 (02:02→13:57)
[2016-08-24] MEDS: AMPICILLIN/SULBACTAM SOD INJ 1,500 MG in SODIUM CHLORIDE 0.9% 100ML 100 ML IV SCH ×4 (03:01→21:51)
[2016-08-24 06:42] LABS: HEMATOCRIT 32.5 % (37-47); MEAN CELL VOLUME 93.1 fL (80-100); MEAN CORPUSCULAR HEMOGLOBIN 31.2 pg (25-34); MEAN CORPUSCULAR HGB CONC 33.5 g/dl (32-36); MEAN PLATELET VOLUME 10.9 fL (7.4-10.4); PLATELET COUNT 172 K/uL (130-400); RED BLOOD COUNT 3.49 M/uL (4.2-5.4); WHITE BLOOD COUNT 10.55 K/uL (4.8-10.8)
[2016-08-24 07:13] LABS: BUN/CREATININE RATIO 21.6 (10-20); CALCIUM 8.1 mg/dl (8.5-10.1); CREATININE 0.66 mg/dl (0.60-1.20); MAGNESIUM 2.1 mg/dl (1.8-2.4)
[2016-08-24] MEDS: ASPIRIN 81 MG CHEW PO SCH (09:44)
[2016-08-24] MEDS: POTASSIUM CHLORIDE 10 MEQ TABCR PO SCH (09:44)
[2016-08-24] MEDS: CHOLECALCIFEROL 1000 INTER.UNIT TAB PO SCH (09:45)
[2016-08-24] MEDS: ESCITALOPRAM OXALATE 10 MG TAB PO SCH (09:45)
--- NOTE | 2016-08-24 11:05 | Progress Note ---
Subjective Date of Service: Aug 24, 2016. Subjective Nursing states that pt has had quick and spontaneously resolving rigors when she is moved around a lot, but none and rest and no activity on the monitor. No fever. Pt denies SOB, chest pain, abd pain, n/v/c/d, LE pain or swelling. ROS as noted above, otherwise neg. Problem List Medical Problems: (1) Coarse tremors Status: Acute (2) Pneumonia Status: Acute (3) Sinusitis Status: Acute Objective Vital Signs Date Time Temp Pulse Resp B/P Pulse Ox O2 Delivery O2 Flow Rate FiO2 08/24/16 08:00 Nasal Cannula 2.0 08/24/16 07:18 36.8 78 16 123/69 96 Nasal Cannula 2.0 08/24/16 04:35 35.9 81 18 102/67 95 Nasal Cannula 2.0 08/24/16 03:27 Nasal Cannula 2.0 08/24/16 00:35 36.4 79 14 110/60 94 Room Air 08/24/16 00:20 72 19 98 Nasal Cannula 4.0 08/24/16 00:05 73 21 98 08/24/16 00:01 97/56 08/23/16 23:50 73 15 94 08/23/16 23:45 74 16 92 08/23/16 23:31 86/53 08/23/16 23:30 75 17 94 08/23/16 23:15 77 16 97 08/23/16 23:01 102/57 08/23/16 23:00 81 16 96 08/23/16 22:45 77 24 99 08/23/16 22:31 115/56 08/23/16 22:30 76 16 100 08/23/16 22:15 76 16 100 08/23/16 22:01 125/69 08/23/16 22:00 81 16 100 08/23/16 21:40 83 17 126/69 100 Nasal Cannula 4.0 08/23/16 21:01 91 20 115/69 94 Nasal Cannula 4.0 08/23/16 20:38 89 08/23/16 20:31 90 20 107/66 98 Non-Rebreather 10.0 08/23/16 20:10 99 Non-Rebreather 10.0 08/23/16 20:05 88 Nasal Cannula 4.0 3/18/17 20:01 90 21 129/77 93 Nasal Cannula 4.0 08/23/16 19:36 107 08/23/16 19:30 38.8 107 27 110/48 89 Room Air Physical Exam General Appearance: WD/WN, no apparent distress Respiratory/Chest: normal breath sounds, no respiratory distress Cardiovascular: regular rate, rhythm, no edema Abdomen: non tender, soft Extremities: non-tender, no pedal edema Neurologic/Psychiatric: alert, + pertinent finding (resting comfortably, no shaking or tremor) Skin: normal color, warm/dry Laboratory Results Last 24 Hours Test 08/23/16 20:25 08/23/16 21:40 08/24/16 06:18 White Blood Count 11.23 K/uL 10.55 K/uL Red Blood Count 3.77 M/uL 3.49 M/uL Hemoglobin 11.8 g/dL 10.9 g/dL Hematocrit 34.0 % 32.5 % Mean Corpuscular Volume 90.2 fL 93.1 fL Mean Corpuscular Hemoglobin 31.3 pg 31.2 pg Mean Corpuscular Hemoglobin Concent 34.7 g/dl 33.5 g/dl Platelet Count 195 K/uL 172 K/uL Mean Platelet Volume 10.6 fL 10.9 fL Neutrophils (%) (Auto) 74.0 % Lymphocytes (%) (Auto) 17.3 % Monocytes (%) (Auto) 7.9 % Eosinophils (%) (Auto) 0.2 % Basophils (%) (Auto) 0.3 % Neutrophils # (Auto) 8.32 K/uL Lymphocytes # (Auto) 1.94 K/uL Monocytes # (Auto) 0.89 K/uL Eosinophils # (Auto) 0.02 K/uL Basophils # (Auto) 0.03 K/uL RDW Standard Deviation 41.6 fL 43.5 fL RDW Coefficient of Variation 12.6 % 12.8 % Immature Granulocyte % (Auto) 0.3 % Immature Granulocyte # (Auto) 0.03 K/uL Red Blood Cell Morphology Unremarkable Prothrombin Time 11.6 SECONDS Prothromb Time International Ratio 1.1 Activated Partial Thromboplast Time 32.3 SECONDS Partial Thromboplastin Ratio 1.2 Sodium Level 139 mmol/L 139 mmol/L Potassium Level 3.5 mmol/L 4.0 mmol/L Chloride Level 106 mmol/L 107 mmol/L Carbon Dioxide Level 23 mmol/L 25 mmol/L Anion Gap 10.0 mmol/L 7.0 mmol/L Blood Urea Nitrogen 18 mg/dl 14 mg/dl Creatinine 0.82 mg/dl 0.66 mg/dl Est Creatinine Clear Calc Drug Dose 47.6 ml/min 56.7 ml/min Estimated GFR () 81.1 100.2 Estimated GFR (Non- 70.0 86.4 BUN/Creatinine Ratio 21.6 21.6 Random Glucose 112 mg/dl 100 mg/dl Calcium Level 8.6 mg/dl 8.1 mg/dl Magnesium Level 2.1 mg/dl 2.1 mg/dl Total Bilirubin 0.5 mg/dl Direct Bilirubin 0.1 mg/dl Aspartate Amino Transf (AST/SGOT) 32 U/L Alanine Aminotransferase (ALT/SGPT) 25 U/L Alkaline Phosphatase 57 U/L Total Creatine Kinase 128 U/L Creatine Kinase MB 1.3 ng/ml Creatine Kinase MB Ratio 1.0 Troponin I < 0.015 ng/ml Total Protein 7.6 gm/dl Albumin 3.2 gm/dl Lipase 280 U/L Thyroid Stimulating Hormone (TSH) 1.640 uIu/ml Influenza Type A (RT-PCR) Neg for Influ A Influenza Type A Antigen Neg for Influ A Influenza Type B Antigen Neg for Influ B Influenza Type B (RT-PCR) Neg for Influ B Assessment and Plan 75 y/o F w/advanced dementia, bipolar disease, HTN who resides in a nursing facility. Pt's was with her during the day and witnessed her exhibit shaking of her upper and lower extremities which was interpreted as a seizure. He filmed this on his phone. Upon watching the video it was noted that the pt was awake during her tremors and therefore the tremors were more likely compatible with rigors. She had a temp of 38 on arrival to the ER and a CXR is consistent with a RLL pneumonia. She was in the ER one day prior and was treated for a UTI however on review her UA is negative. The pt received 4mg of Ativan on route to the hospital to terminate her "seizure". She is alseep at the time of admission although she responds to tactile stimulus. Her states that he is not familiar with the pts medical history. There was no reported productive cough or hypoxia. She does appear congested at the time of admission. 1) PNM - placed on Unasyn and Zithro to cover CAP and aspiration 2) Rigors vs seizure - as she was awake while shaking and the symptoms were B/L this by definition was not a seizure - she will be monitored on telemetry - we will hold further Ativan at present. 3) Dementia - Bipolar disease - Cont Seroquel when awake 4) HTN - cont Metoprolol Full code - Heparin prophylaxis If no further concern for seizures by this afternoon, pt can be transferred to the floor
[2016-08-24] MEDS: RANITIDINE HCL 150 MG TAB PO SCH (20:38)
[2016-08-24] MEDS: SIMVASTATIN 40 MG TAB PO SCH (20:38)
[2016-08-24] MEDS: QUETIAPINE FUMARATE 25 MG TAB PO SCH (20:39)
[2016-08-25] VITALS (7 sets, daily range): BP systolic 108–147; BP diastolic 64–80; PULSE 76–89; TEMP 36.4–36.8; O2SAT 90–96
[2016-08-25] MEDS: AZITHROMYCIN IV 500 MG in DEXTROSE 5% 250ML 250 ML IV SCH (02:04)
[2016-08-25] MEDS: AMPICILLIN/SULBACTAM SOD INJ 1,500 MG in SODIUM CHLORIDE 0.9% 100ML 100 ML IV SCH ×4 (04:12→21:30)
[2016-08-25] MEDS: ESCITALOPRAM OXALATE 10 MG TAB PO SCH (08:28)
[2016-08-25] MEDS: ASPIRIN 81 MG CHEW PO SCH (08:28)
[2016-08-25] MEDS: CHOLECALCIFEROL 1000 INTER.UNIT TAB PO SCH (08:28)
[2016-08-25] MEDS: POTASSIUM CHLORIDE 10 MEQ TABCR PO SCH (08:29)
--- NOTE | 2016-08-25 08:51 | Clinical Documentation Query ---
QUERY 1 OF [address] STOUT, In your clinical opinion is this patient being managed for: ( ) Acute maxillary sinusitis ( ) Other explanation of clinical findings (Please Explain) ( ) Unable to determine (Please Define) ( ) Need to Discuss ( ) Not Agree The medical record reflects the following clinical findings, treatment, and risk factors. Clinical Indicators: 75 yo female presenting with pneumonia and mental status change. CT head showed acute left maxillary sinusitis. Treatment: IV unasyn, IV azithromycin Risk Factors: age, pneumonia In your clinical opinion is this patient being managed for: ( ) drug induced encephalopathy from Ativan ( ) multifactorial encephalopathy due to Ativan and sinusitis ( ) Other explanation of clinical findings (Please Explain) ( ) Unable to determine (Please Define) ( ) Need to Discuss ( ) Not Agree The medical record reflects the following clinical findings, treatment, and risk factors. Clinical Indicators: 75 yo female presenting with an altered mental status. Reportedly received 4 ativan due to report of suspected seizures. Nursing documentation noted pt still nonverbal 13 hours after receiving ativan. Per case management note pt is able to speak but is unclear and often mumbles. Treatment: hold further doses of ativan, tele monitoring, Risk Factors: ativan administration, age, has known dementia, sinusitis Please clarify and document your clinical opinion in the progress notes and discharge summary. Terms such as "probable", "suspected", "likely", "questionable", "possible", or "still to be ruled out" are acceptable. IF IN AGREEMENT, YOU MUST DOCUMENT ABOVE DIAGNOSTIC STATEMENT IN DAILY PROGRESS NOTES AND DISCHARGE SUMMARY. This document is not part of the patient's record. Thank You, Yisel Chauhan, RN [phone]
--- NOTE | 2016-08-25 08:55 | Clinical Documentation Query ---
QUERY 1 OF [address] GROSS, In your clinical opinion is this patient being managed for: ( ) Acute maxillary sinusitis ( ) Other explanation of clinical findings (Please Explain) ( ) Unable to determine (Please Define) ( ) Need to Discuss (x ) Not Agree - treating for pneumonia The medical record reflects the following clinical findings, treatment, and risk factors. Clinical Indicators: 75 yo female presenting with pneumonia and mental status change. CT head showed acute left maxillary sinusitis. Treatment: IV unasyn, IV azithromycin Risk Factors: age, pneumonia QUERY 2 OF 2 In your clinical opinion is this patient being managed for: ( ) drug induced encephalopathy from Ativan ( ) multifactorial encephalopathy due to Ativan and sinusitis ( x ) Other explanation of clinical findings (Please Explain) multifactorial encephalopathy from pneumonia, Ativan superimposed on chronic severe dementia ( ) Unable to determine (Please Define) ( ) Need to Discuss ( ) Not Agree The medical record reflects the following clinical findings, treatment, and risk factors. Clinical Indicators: 75 yo female presenting with an altered mental status. Reportedly received 4 ativan due to report of suspected seizures. Nursing documentation noted pt still nonverbal 13 hours after receiving ativan. Per case management note pt is able to speak but is unclear and often mumbles. Treatment: hold further doses of ativan, tele monitoring, Risk Factors: ativan administration, age, has known dementia, sinusitis Please clarify and document your clinical opinion in the progress notes and discharge summary. Terms such as "probable", "suspected", "likely", "questionable", "possible", or "still to be ruled out" are acceptable. IF IN AGREEMENT, YOU MUST DOCUMENT ABOVE DIAGNOSTIC STATEMENT IN DAILY PROGRESS NOTES AND DISCHARGE SUMMARY. This document is not part of the patient's record. Thank You, Yisel Chauhan RN [phone]
--- NOTE | 2016-08-25 09:25 | DIAGNOSTIC IMAGING REPORT ---
SINGLE VIEW CHEST CLINICAL HISTORY: Hypoxia. Change in mental status. FINDINGS: An AP, portable, upright chest radiograph is compared to study dated 08/23/2016. The examination is degraded by portable technique and patient rotation. The heart is top normal for projection and there is atherosclerotic calcification of the thoracic aorta. The pulmonary vasculature is noncongested. Chronic interstitial thickening is unchanged. Left basilar airspace consolidation is unchanged from 08/23/2016. The right lung appears clear. No large pleural effusion or pneumothorax is seen. The skeletal structures are osteopenic. Degenerative change is noted throughout the thoracic spine. Several compression deformities are noted. IMPRESSION: Left basilar airspace consolidation is unchanged Electronically signed by: Royal Do M.D. 08/25/2016 9:24 AM Dictated Date/Time: 08/25/2016 9:21 AM
--- NOTE | 2016-08-25 13:28 | Family Medicine Progress Note ---
Progress Note Date of Service Aug 25, 2016. Subjective Pt evaluation today including: physical exam, chart review, lab review, review of studies PO Intake: WNL Patient does have dementia and is unable to verbally respond appropriately While in the room d/c the oxygen and sats would drop to low 90/ high 80 unable to complete ROS because of limited responses secondary to dementia Medications Medications Administered Medications (Trade) Dose Ordered Sig/Selene Route Start Time Stop Time Status Last Admin Dose Admin Sodium Chloride (Nss 1000ml) 1,000 ml @ 999 mls/hr Q1H1M STAT IV 08/23/16 20:03 08/23/16 21:03 DC 08/23/16 20:26 999 MLS/HR Ceftriaxone Sodium (Rocephin Inj) 1 gm NOW STAT IV 08/23/16 20:03 08/23/16 20:05 DC 08/23/16 20:26 1 GM Piperacillin Sod/ Tazobactam Sod (Zosyn Iv) 4.5 gm NOW STAT IV 08/23/16 21:56 08/23/16 21:57 DC 08/23/16 22:05 4.5 GM Levofloxacin (Levaquin / D5W) 750 mg NOW STAT IV 08/23/16 21:56 08/23/16 21:57 DC 08/24/16 00:53 750 MG Aspirin (Aspirin Chew) 81 mg QAM PO 08/24/16 09:00 09/23/16 08:59 08/25/16 08:28 81 MG Escitalopram Oxalate (Lexapro Tab) 10 mg QAM PO 08/24/16 09:00 09/23/16 08:59 08/25/16 08:28 10 MG Potassium Chloride (Klor-Con M10) 10 meq QAM PO 08/24/16 09:00 09/23/16 08:59 08/25/16 08:29 10 MEQ Quetiapine Fumarate (seroQUEL TAB) 12.5 mg HS PO 08/24/16 21:00 09/23/16 20:59 08/24/16 20:39 12.5 MG Ranitidine HCl (zANTac TAB) 150 mg HS PO 08/24/16 21:00 09/23/16 20:59 08/24/16 20:38 150 MG Simvastatin (Zocor Tab) 40 mg QPM PO 08/24/16 21:00 09/23/16 20:59 08/24/16 20:38 40 MG Cholecalciferol 5000 inter.unit 5,000 inter.unit QAM PO 08/24/16 09:00 09/23/16 08:59 08/25/16 08:28 5,000 INTER.UNIT Potassium Chloride/Dextrose/ Sod Cl 1,000 ml @ 80 mls/hr [id number] IV 08/24/16 01:45 08/25/16 02:44 DC 08/24/16 13:57 80 MLS/HR Ampicillin Sodium/ Sulbactam Sodium 1500 mg/Sodium Chloride 104 ml @ 200 mls/hr Q6H IV 08/24/16 04:00 08/31/16 04:59 08/25/16 09:43 200 MLS/HR Azithromycin/ Dextrose (Zithromax IV/D5 250ml) 255 ml @ 125 mls/hr Q24H IV 08/24/16 02:00 08/31/16 01:59 08/25/16 02:04 125 MLS/HR Objective Physical Exam General Appearance: WD/WN, no apparent distress Eyes: normal inspection ENT: normal ENT inspection Neck: supple Respiratory/Chest: normal breath sounds, no respiratory distress, no accessory muscle use, + decreased breath sounds (bilat bases), + pertinent finding ( occasionally coarse breath sounds) Cardiovascular: regular rate, rhythm, no murmur Abdomen: normal bowel sounds, non tender, soft Extremities: non-tender, normal inspection, no pedal edema, no calf tenderness Neurologic/Psychiatric: + pertinent finding (alert, pleasantly demented) Skin: normal color, warm/dry, no rash Lymphatic: no adenopathy Assessment and Plan Documented By: Hector Tanner 75 y/o F w/advanced dementia, bipolar disease, HTN who resides in a nursing facility. Pt's was with her during the day and witnessed her exhibit shaking of her upper and lower extremities which was interpreted as a seizure. He filmed this on his phone. Upon watching the video it was noted that the pt was awake during her tremors and therefore the tremors were more likely compatible with rigors. She had a temp of 38 on arrival to the ER and a CXR is consistent with a RLL pneumonia. She was in the ER one day prior and was treated for a UTI however on review her UA is negative. The pt received 4mg of Ativan on route to the hospital to terminate her "seizure". She was alseep at the time of admission although she responded to tactile stimulus. She is still rather lethargic however she is not sedated. A cxr revealed that the patient has a left LL infiltrate which is the most likely cause of the patient' s fever, lethargy and new oxygen requirement. Hospital acquired pna - MRSA negative - continue unasyn and zithro today, consider de escalate tomorrow - No UTI noted on UA Rigors vs seizure - - no further episodes- more likely rigors - consider down grade to med surg Dementia - Bipolar disease - - cont seroquel HTN - - Cont metoprolol Full code - Heparin prophylaxis Resident Physician Supervision Note: I interviewed and examined the patient. Discussed with Dr. Arthur and agree with findings and plan as documented in the note. Any exceptions or clarifications are listed here: None appearing better family present - pleased with her progress no further rigors no meaningful HPI or ROS obtainable from pt vitals noted see EMR nad, breathing unlabored, no pallor or icterus healthcare associated pneumonia w acute hypoxic respiratory failure CPOA - imprving conitnue current antibiotics rigors - from above, no evidence seizures - continue as above DVT proph - lovenox (heparin listed in notes, but was not ordered - lovenox added) Continued [facility] stay due to: abnormal vital signs Discharge planning: shelter facility
[2016-08-25] MEDS: QUETIAPINE FUMARATE 25 MG TAB PO SCH (20:44)
[2016-08-25] MEDS: RANITIDINE HCL 150 MG TAB PO SCH (20:45)
[2016-08-25] MEDS: SIMVASTATIN 40 MG TAB PO SCH (20:45)
[2016-08-26] MEDS: AZITHROMYCIN IV 500 MG in DEXTROSE 5% 250ML 250 ML IV SCH (02:11)
[2016-08-26] MEDS: AMPICILLIN/SULBACTAM SOD INJ 1,500 MG in SODIUM CHLORIDE 0.9% 100ML 100 ML IV SCH ×2 (03:56→09:02)
[2016-08-26 07:41] LABS: HEMATOCRIT 32.2 % (37-47); MEAN CELL VOLUME 90.4 fL (80-100); MEAN CORPUSCULAR HEMOGLOBIN 31.5 pg (25-34); MEAN CORPUSCULAR HGB CONC 34.8 g/dl (32-36); MEAN PLATELET VOLUME 10.9 fL (7.4-10.4); PLATELET COUNT 203 K/uL (130-400); RED BLOOD COUNT 3.56 M/uL (4.2-5.4); WHITE BLOOD COUNT 6.54 K/uL (4.8-10.8)
[2016-08-26 08:13] LABS: BUN/CREATININE RATIO 10.9 (10-20); CALCIUM 8.7 mg/dl (8.5-10.1); CREATININE 0.44 mg/dl (0.60-1.20); POTASSIUM 3.1 mmol/L (3.5-5.1)
[2016-08-26] MEDS: ESCITALOPRAM OXALATE 10 MG TAB PO SCH (08:44)
[2016-08-26] MEDS: ENOXAPARIN 40 MG/0.4 ML SYR SQ SCH (08:45)
[2016-08-26] MEDS: CHOLECALCIFEROL 1000 INTER.UNIT TAB PO SCH (08:45)
[2016-08-26] MEDS: POTASSIUM CHLORIDE 10 MEQ TABCR PO SCH (08:45)
[2016-08-26] MEDS: ASPIRIN 81 MG CHEW PO SCH (08:46)
--- NOTE | 2016-08-26 10:13 | Family Medicine Progress Note ---
Progress Note Date of Service Aug 26, 2016. Subjective Pt evaluation today including: conversation w/ family, physical exam, chart review, lab review, review of studies PO Intake: WNL Discussed care with has ongoing concerns that rigors will return however states that she is 90% better at this point We discussed plan and agrees with plan Unable to complete ROS because patient is nonverbal Medications Medications Administered Medications (Trade) Dose Ordered Sig/Selene Route Start Time Stop Time Status Last Admin Dose Admin Sodium Chloride (Nss 1000ml) 1,000 ml @ 999 mls/hr Q1H1M STAT IV 08/23/16 20:03 08/23/16 21:03 DC 08/23/16 20:26 999 MLS/HR Ceftriaxone Sodium (Rocephin Inj) 1 gm NOW STAT IV 08/23/16 20:03 08/23/16 20:05 DC 08/23/16 20:26 1 GM Piperacillin Sod/ Tazobactam Sod (Zosyn Iv) 4.5 gm NOW STAT IV 08/23/16 21:56 08/23/16 21:57 DC 08/23/16 22:05 4.5 GM Levofloxacin (Levaquin / D5W) 750 mg NOW STAT IV 08/23/16 21:56 08/23/16 21:57 DC 08/24/16 00:53 750 MG Aspirin (Aspirin Chew) 81 mg QAM PO 08/24/16 09:00 09/23/16 08:59 08/26/16 08:46 81 MG Escitalopram Oxalate (Lexapro Tab) 10 mg QAM PO 08/24/16 09:00 09/23/16 08:59 08/26/16 08:44 10 MG Potassium Chloride (Klor-Con M10) 10 meq QAM PO 08/24/16 09:00 09/23/16 08:59 08/26/16 08:45 10 MEQ Quetiapine Fumarate (seroQUEL TAB) 12.5 mg HS PO 08/24/16 21:00 09/23/16 20:59 08/25/16 20:44 12.5 MG Ranitidine HCl (zANTac TAB) 150 mg HS PO 08/24/16 21:00 09/23/16 20:59 08/25/16 20:45 150 MG Simvastatin (Zocor Tab) 40 mg QPM PO 08/24/16 21:00 09/23/16 20:59 08/25/16 20:45 40 MG Cholecalciferol 5000 inter.unit 5,000 inter.unit QAM PO 08/24/16 09:00 09/23/16 08:59 08/26/16 08:45 5,000 INTER.UNIT Potassium Chloride/Dextrose/ Sod Cl 1,000 ml @ 80 mls/hr [id number] IV 08/24/16 01:45 08/25/16 02:44 DC 08/24/16 13:57 80 MLS/HR Ampicillin Sodium/ Sulbactam Sodium 1500 mg/Sodium Chloride 104 ml @ 200 mls/hr Q6H IV 08/24/16 04:00 08/31/16 04:59 08/26/16 09:02 200 MLS/HR Azithromycin/ Dextrose (Zithromax IV/D5 250ml) 255 ml @ 125 mls/hr Q24H IV 08/24/16 02:00 08/31/16 01:59 08/26/16 02:11 125 MLS/HR Enoxaparin Sodium (Lovenox Inj) 40 mg QAM SQ 08/26/16 09:00 09/25/16 08:59 08/26/16 08:45 40 MG Objective Vital Signs Date Time Temp Pulse Resp B/P Pulse Ox O2 Delivery O2 Flow Rate FiO2 08/26/16 00:00 Room Air 08/25/16 23:24 36.4 89 18 131/78 90 Room Air 08/25/16 16:48 92 Room Air 08/25/16 16:03 36.8 87 16 145/76 92 Room Air 08/25/16 12:00 Room Air 08/25/16 11:40 36.7 84 16 133/75 95 Room Air Physical Exam General Appearance: no apparent distress, + thin Eyes: normal inspection ENT: normal ENT inspection Neck: supple Respiratory/Chest: no respiratory distress, no accessory muscle use, + decreased breath sounds (bilat bases), + pertinent finding (occasional coarse breath sounds) Cardiovascular: regular rate, rhythm, no murmur Abdomen: normal bowel sounds, non tender, soft Extremities: normal inspection, no pedal edema, no calf tenderness Neurologic/Psychiatric: alert, + pertinent finding (nonverba) Skin: normal color, warm/dry, no rash Lymphatic: no adenopathy Laboratory Results Results Past 24 Hours Test 08/26/16 07:06 Range/Units White Blood Count 6.54 4.8-10.8 K/uL Red Blood Count 3.56 4.2-5.4 M/uL Hemoglobin 11.2 12.0-16.0 g/dL Hematocrit 32.2 37-47 % Mean Corpuscular Volume 90.4 80-100 fL Mean Corpuscular Hemoglobin 31.5 25-34 pg Mean Corpuscular Hemoglobin Concent 34.8 32-36 g/dl RDW Standard Deviation 40.2 36.4-46.3 fL RDW Coefficient of Variation 12.1 11.5-14.5 % Platelet Count 203 130-400 K/uL Mean Platelet Volume 10.9 7.4-10.4 fL Sodium Level 140 136-145 mmol/L Potassium Level 3.1 3.5-5.1 mmol/L Chloride Level 105 98-107 mmol/L Carbon Dioxide Level 24 21-32 mmol/L Anion Gap 11.0 3-11 mmol/L Blood Urea Nitrogen 5 7-18 mg/dl Creatinine 0.44 0.60-1.20 mg/dl Est Creatinine Clear Calc Drug Dose 80.2 ml/min Estimated GFR () 114.4 Estimated GFR (Non- 98.7 BUN/Creatinine Ratio 10.9 10-20 Random Glucose 83 70-99 mg/dl Calcium Level 8.7 8.5-10.1 mg/dl Assessment and Plan 75 y/o F w/advanced dementia, bipolar disease, HTN who resides in a nursing facility. Pt's was with her during the day and witnessed her exhibit shaking of her upper and lower extremities which was interpreted as a seizure. He filmed this on his phone. Upon watching the video it was noted that the pt was awake during her tremors and therefore the tremors were more likely compatible with rigors. She had a temp of 38 on arrival to the ER and a CXR is consistent with a RLL pneumonia. She was in the ER one day prior and was treated for a UTI however on review her UA is negative. The pt received 4mg of Ativan on route to the hospital to terminate her "seizure". She was alseep at the time of admission although she responded to tactile stimulus. Alert now however nonverbal. A cxr revealed that the patient has a left LL infiltrate which is the most likely cause of the patient's fever, lethargy and new oxygen requirement. Hospital acquired pna - MRSA negative - continue Zithro 08/10 - unasyn 08/08 - Change to Augmentin 875 bid 06/14 - plan is to transition to oral today and if patient continues to do well , d/c back to SNF tomorrow - No UTI noted on UA hypokalemia -replete PRN Rigors vs seizure - - no further episodes- more likely rigors Dementia - Bipolar disease - - cont seroquel HTN - - Cont metoprolol Full code - Lovenox prophylaxis Resident Physician Supervision Note: I interviewed and examined the patient. Discussed with Dr. Arthur and agree with findings and plan as documented in the note. Any exceptions or clarifications are listed here: None Documented By: Hector Tanner appears to be feeling better. R2 d/w - pleased with progress. no meaningful HPI or ROS obtainable from pt vitals noted see EMR gen - nad heent - nc at mmm cardio - reg no r/m/g lungs - cta a/p HAP - ongoing improvement - hopefully back to SNF tomorrow, otherwise as above Continued [facility] stay due to: other Discharge planning: uncertain
[2016-08-26] MEDS ORDERED: POTASSIUM CITRATE 10 MEQ TAB PO ONE (11:30)
[2016-08-26 15:25] VITALS: BP 151/94; PULSE 106; TEMP 37.1; O2SAT 92
[2016-08-26 16:00] VITALS: O2SAT 92
[2016-08-26] MEDS: AMOXICILLIN/CLAVULANATE TAB 875 MG TAB PO SCH (17:25)
[2016-08-26] MEDS: SIMVASTATIN 40 MG TAB PO SCH (21:07)
[2016-08-26] MEDS: RANITIDINE HCL 150 MG TAB PO SCH (21:07)
[2016-08-26] MEDS: QUETIAPINE FUMARATE 25 MG TAB PO SCH (21:08)
[2016-08-27] MEDS: AZITHROMYCIN IV 500 MG in DEXTROSE 5% 250ML 250 ML IV SCH (01:52)
[2016-08-27 07:40] VITALS: O2SAT 91
[2016-08-27 07:49] LABS: HEMATOCRIT 32.3 % (37-47); MEAN CELL VOLUME 90.5 fL (80-100); MEAN CORPUSCULAR HEMOGLOBIN 31.1 pg (25-34); MEAN CORPUSCULAR HGB CONC 34.4 g/dl (32-36); MEAN PLATELET VOLUME 10.8 fL (7.4-10.4); PLATELET COUNT 232 K/uL (130-400); RED BLOOD COUNT 3.57 M/uL (4.2-5.4)
[2016-08-27 08:16] LABS: BUN/CREATININE RATIO 21.1 (10-20); CALCIUM 8.7 mg/dl (8.5-10.1); CREATININE 0.53 mg/dl (0.60-1.20); POTASSIUM 3.4 mmol/L (3.5-5.1)
[2016-08-27 08:18] VITALS: BP 125/74; PULSE 71; TEMP 36.7; O2SAT 91
[2016-08-27] MEDS: AMOXICILLIN/CLAVULANATE TAB 875 MG TAB PO SCH (08:52)
[2016-08-27] MEDS: POTASSIUM CHLORIDE 10 MEQ TABCR PO SCH (08:53)
[2016-08-27] MEDS: CHOLECALCIFEROL 1000 INTER.UNIT TAB PO SCH (08:53)
[2016-08-27] MEDS: ESCITALOPRAM OXALATE 10 MG TAB PO SCH (08:55)
[2016-08-27] MEDS: ASPIRIN 81 MG CHEW PO SCH (09:00)
[2016-08-27] MEDS: ENOXAPARIN 40 MG/0.4 ML SYR SQ SCH (09:03)
[2016-08-27] MEDS ORDERED: AMOX1TAB43 PO (09:52)
[2016-08-27] MEDS ORDERED: AZIT250T PO (09:52)
[2016-08-27 11:16] VITALS: BP 125/74; PULSE 71; TEMP 36.7; O2SAT 91
--- NOTE | 2016-08-27 11:16 | Discharge Instructions ---
Discharge Instructions Date of Service Aug 27, 2016. Admission Reason for Admission: Altered Mental Status, Seizure Discharge Discharge Diagnosis / Problem: pneumonia Discharge Goals Goal(s): Diagnostic testing, Therapeutic intervention Activity Recommendations Activity Level: Assistance Required . Additional Information Patient informed of condition: Yes Advance Directives: No DNR: No Level of Care: Skilled Communicable Disease: No Prognosis: Stable Instructions / Follow-Up Instructions / Follow-Up 75 y/o F w/advanced dementia, bipolar disease, HTN who resides in a nursing facility. Pt's was with her during the day and witnessed her exhibit shaking of her upper and lower extremities which was interpreted as a seizure. He filmed this on his phone. Upon watching the video it was noted that the pt was awake during her tremors and therefore the tremors were more likely compatible with rigors. She had a temp of 38 on arrival to the ER and a CXR is consistent with a RLL pneumonia. She was in the ER one day prior and was treated for a UTI however on review her UA is negative. The pt received 4mg of Ativan on route to the hospital to terminate her "seizure". She was alseep at the time of admission although she responded to tactile stimulus. Alert now however nonverbal. A cxr revealed that the patient has a left LL infiltrate which is the most likely cause of the patient's fever, lethargy and new oxygen requirement. She was treated with both unasyn and zithro and once patient improved significantly she was transitioned to oral antibiotics with plan to continue in the outpatient setting. Hospital acquired pna; multifactorial encephalopathy from pna; ativan superimposed on chronic sever dementia - MRSA negative - continue Zithro - one more day to complete a 5 day course, rx given - unasyn 3/3 - Change to Augmentin 875 bid continue for 6 more days, rx given - No UTI noted on UA - blood cultures negative x2 hypokalemia - recommend recheck in one week Rigors vs seizure - - no further episodes- more likely rigors Dementia - Bipolar disease - - cont seroquel - I did discuss the patient's dementia with her . He expressed concern that she was possibly overmedicated and would like to try augment her dementia medications. She did not receive any prn medications while in house - We will not change dose for now however did tell patient that if warranted this could be something to revisit in the future if patient is feeling well as patient is not at her baseline currently - he was agreeable to this HTN - - Cont metoprolol Full code - Lovenox prophylaxis was received Current Hospital Diet Patient's current hospital diet: Low Sodium Diet (2gm Na) Discharge Diet Recommended Diet: Regular Diet Pending Studies Studies pending at discharge: no Medical Emergencies . Who to Call and When: Medical Emergencies: If at any time you feel your situation is an emergency, please call 911 immediately. . Non-Emergent Contact Non-Emergency issues call your: Primary Care Provider . . "Provider Documentation" section prepared by Jessica Arthur. Core Measure Problem Core Measures: None
--- NOTE | 2016-08-27 13:17 | Discharge Summary ---
Discharge Summary Date of Service Aug 27, 2016. (Jessica Arthur MD) Discharge Summary Admission Date: Aug 23, 2016 at 22:47 Discharge Date: Aug 27, 2016 Discharge Disposition: shelter facility Principal Diagnosis: pneumonia Immunizations: Have You Had Influenza Vaccine: Yes Influenza Vaccine Date: Mar 20, 2011 History of Tetanus Vaccine?: No History of Pneumococcal: Yes Pneumococcal Date: May 20, 2008 History of Hepatitis B Vaccine: No Hepatitis Immunization Date: Mar 25, 2000 (Jessica Arthur MD) Medication Reconciliation New Medications: Azithromycin (Zithromax) 250 Mg Tab 250 MG PO one, #1 TAB Amoxicillin & Pot Clavulanate (Amoxicillin/Clavulanate P) 1 Tab Tab 875 MG PO BIDM for 6 Days, #12 TAB Continued Medications: Acetaminophen (Acetaminophen) 325 Mg Tab 650 MG PO Q6H PRN for Pain or Fever Aspirin (Aspirin Chewable) 81 Mg Chew 81 MG PO QAM Cholecalciferol (Vitamin D3) 5,000 Unit Cap 5000 UNITS PO QAM Escitalopram (Lexapro) 10 Mg Tab 10 MG PO QAM L-Methylfolate W/ Cyanocobalam (Cerefolin) 1 Tab Tab 1 TAB PO QAM Potassium Chloride (Micro-K Ext Rel) 10 Meq Capcr 10 MEQ PO QAM Quetiapine Fumarate (Seroquel) 25 Mg Tab 12.5 MG PO HS Ranitidine (Zantac) 150 Mg Tab 150 MG PO HS Simvastatin (Zocor) 40 Mg Tab 40 MG PO QPM Discontinued Medications: Sulfamethoxazole-Trimethoprim (Bactrim Ds 800MG/160MG) 1 Tab Tab 1 TAB PO BID Discharge Exam patient is alert this morning however no meaningful discussion did discuss care with and agreeable with plan he was concerned about oversedation with her current regimen and I stated that it is hard sometimes to change these medications while ill and if this is an ongoing concern to revisit it down the road unable to complete an ROS because of dementia Physical Exam: General Appearance: no apparent distress Eyes: normal inspection ENT: normal ENT inspection Neck: supple Respiratory/Chest: normal breath sounds, no respiratory distress, no accessory muscle use, + decreased breath sounds (bilat bases) Cardiovascular: regular rate, rhythm, no murmur Abdomen / GI: normal bowel sounds, non tender, soft Neurologic/Psychiatric: alert Skin: normal color, warm/dry, no rash Lymphatic: no adenopathy (Jessica Arthur MD) Hospital Course Instructions / Follow-Up 75 y/o F w/advanced dementia, bipolar disease, HTN who resides in a nursing facility. Pt's was with her during the day and witnessed her exhibit shaking of her upper and lower extremities which was interpreted as a seizure. He filmed this on his phone. Upon watching the video it was noted that the pt was awake during her tremors and therefore the tremors were more likely compatible with rigors. She had a temp of 38 on arrival to the ER and a CXR is consistent with a RLL pneumonia. She was in the ER one day prior and was treated for a UTI however on review her UA is negative. The pt received 4mg of Ativan on route to the hospital to terminate her "seizure". She was alseep at the time of admission although she responded to tactile stimulus. Alert now however nonverbal. A cxr revealed that the patient has a left LL infiltrate which is the most likely cause of the patient's fever, lethargy and new oxygen requirement. She was treated with both unasyn and zithro and once patient improved significantly she was transitioned to oral antibiotics with plan to continue in the outpatient setting. Hospital acquired pna; multifactorial encephalopathy from pna; ativan superimposed on chronic sever dementia - MRSA negative - continue Zithro - one more day to complete a 5 day course, rx given - unasyn 3/3 - Change to Augmentin 875 bid continue for 6 more days, rx given - No UTI noted on UA - blood cultures negative x2 hypokalemia - recommend recheck in one week Rigors vs seizure - - no further episodes- more likely rigors Dementia - Bipolar disease - - cont seroquel - I did discuss the patient's dementia with her . He expressed concern that she was possibly overmedicated and would like to try augment her dementia medications. She did not receive any prn medications while in house - We will not change dose for now however did tell patient that if warranted this could be something to revisit in the future if patient is feeling well as patient is not at her baseline currently - he was agreeable to this HTN - - Cont metoprolol Full code - Lovenox prophylaxis was received Total Time Spent: Less than 30 minutes This includes examination of the patient, discharge planning, medication reconciliation, and communication with other providers. (Jessica Arthur MD) Resident Physician Supervision Note: I interviewed and examined the patient. Discussed with Dr. Arthur and agree with findings and plan as documented in the note. Any exceptions or clarifications are listed here: None Documented By: Hector Tanner appears better, stable for SNF. no HPI or ROS obtainable from pt vitals noted see EMR pleasant nad heent - nc at mmm lungs - unlabored cta b/l no r/r/w good effort cardio - reg no r/m/g acute multifactorial encephalopathy from pneumonia/ativan/hospital stay/etc - improved. stable for SNF healthcare associated pneumonia - stable/improving - finish outpt treatment (Hector Tanner, D.O.) Discharge Instructions Please refer to the electronic Patient Visit Report (Discharge Instructions) for additional information. (Jessica Arthur MD) Additional Copies To [facility]
== END 2016-08-27 14:00 | DRG 193 ==
LOC: ENRESERVTM → ENRESERVDT → EDBD 19:29 → C.EDB 19:30 → C.MED 22:47 → C.MSN 08-27 00:30
PROVIDERS: ADMIT Internal Medicine; ATTEND Family Medicine
DX: J18.9 Pneumonia, unspecified organism (principal); J96.00 Acute respiratory failure, unspecified whether with hypoxia or hypercapnia; I10 Essential (primary) hypertension; F31.9 Bipolar disorder, unspecified; G40.309 Generalized idiopathic epilepsy and epileptic syndromes, not intractable, without status epilepticus; J32.9 Chronic sinusitis, unspecified; F03.90 Unspecified dementia, unspecified severity, without behavioral disturbance, psychotic disturbance, mood disturbance, and anxiety; E87.6 Hypokalemia; R41.82 Altered mental status, unspecified; G40.909 Epilepsy, unspecified, not intractable, without status epilepticus; Z82.49 Family history of ischemic heart disease and other diseases of the circulatory system

== ENCOUNTER → 2016-09-30 | Outpatient (CLI) | payer OTHER ==
[~2016-09-30] MED LIST changes: +AMOX1TAB43 PO; +AZIT250T PO; -SULF800T23 PO
== END | disposition home or self-care (01) ==
LOC: C.LABCC 08:30
PROVIDERS: ATTEND Internal Medicine
DX: E55.9 Vitamin D deficiency, unspecified (principal)

== ENCOUNTER → 2016-10-01 | Outpatient (CLI) | payer OTHER | LOC: C.LABCC 08:03 | PROVIDERS: ATTEND Internal Medicine | DX: E55.9 Vitamin D deficiency, unspecified (principal) ==

== ENCOUNTER → 2016-10-09 | Outpatient (CLI) | payer OTHER | LOC: C.LABCC 16:38 | PROVIDERS: ATTEND Internal Medicine | DX: R41.82 Altered mental status, unspecified (principal) ==

== ENCOUNTER → 2017-01-19 | Outpatient (CLI) | payer OTHER ==
[2017-01-19 19:52] LABS: URINE APPEARANCE CLOUDY (CLEAR); URINE BILIRUBIN NEG (NEG); URINE COLOR DK YELLOW; URINE EPITHELIAL CELL AUTO 20-30 /lpf (0-5); URINE NITRITE POS (NEG); URINE SPECIFIC GRAVITY 1.027 (1.000-1.030); UROBILINOGEN NEG (NEG)
[2017-01-19 19:57] LABS: MANUAL MICROSCOPIC REQUIRED? NO; REVIEW REQ? NO
== END | disposition home or self-care (01) ==
LOC: C.LABCC 12:01
PROVIDERS: ATTEND Internal Medicine
DX: R41.82 Altered mental status, unspecified (principal)

== ENCOUNTER → 2017-02-23 | Outpatient (CLI) | payer OTHER ==
[2017-02-23 18:47] LABS: URINE APPEARANCE CLOUDY (CLEAR); URINE BILIRUBIN NEG (NEG); URINE COLOR YELLOW; URINE NITRITE NEG (NEG); UROBILINOGEN NEG (NEG)
[2017-02-23 18:56] LABS: MANUAL MICROSCOPIC REQUIRED? NO; REVIEW REQ? NO
== END ==
LOC: C.LABCC 17:51
PROVIDERS: ATTEND Internal Medicine
DX: R53.83 Other fatigue (principal); R41.82 Altered mental status, unspecified; R29.6 Repeated falls

== ENCOUNTER → 2017-02-24 | Outpatient (CLI) | payer OTHER ==
[2017-02-24 08:22] LABS: HEMATOCRIT 32.6 % (37-47); MEAN CELL VOLUME 97.3 fL (80-100); MEAN CORPUSCULAR HEMOGLOBIN 31.3 pg (25-34); MEAN CORPUSCULAR HGB CONC 32.2 g/dl (32-36); MEAN PLATELET VOLUME 11.4 fL (7.4-10.4); PLATELET COUNT 221 K/uL (130-400); RED BLOOD COUNT 3.35 M/uL (4.2-5.4); WHITE BLOOD COUNT 5.65 K/uL (4.8-10.8)
[2017-02-24 08:32] LABS: ALT/SGPT 55 U/L (12-78); AST/SGOT 45 U/L (15-37); BLOOD UREA NITROGEN 18 mg/dl (7-18); CALCIUM 8.9 mg/dl (8.5-10.1); CARBON DIOXIDE 30 mmol/L (21-32); CHLORIDE 107 mmol/L (98-107); CREATININE 0.55 mg/dl (0.60-1.20); GLUCOSE 79 mg/dl (70-99); POTASSIUM 3.9 mmol/L (3.5-5.1); SODIUM 141 mmol/L (136-145)
[2017-02-24 08:42] LABS: ALB/GLOB RATIO 0.8 (0.9-2); ALKALINE PHOSPHATASE 123 U/L (45-117)
== END ==
LOC: C.LABCC 08:03
PROVIDERS: ATTEND Internal Medicine
DX: R29.6 Repeated falls (principal); R53.83 Other fatigue

== ENCOUNTER → 2017-02-26 | Outpatient (CLI) | payer OTHER ==
[2017-02-26 08:38] LABS: FERRITIN 64.5 ng/ml (8.0-388.0)
--- NOTE | 2017-03-09 14:11 | CODING QUERY MEDICAL NECESSITY ---
CQSUPPORTING DIAGNOSIS NEEDED A supporting diagnosis is required for the test/procedure performed on this patient in order for us to be reimbursed by the patient's insurance. Please provide a supporting diagnosis for the following test/procedure listed below next to the test name along with your signature. *If there is no additional diagnosis for this patient that would support the following test/procedure please document that below next to the test/procedure. Test(s)/Procedure(s) that require a supporting diagnosis: DOS 02/26/17 FOLIC ACID TEST VITAMIN B12 TEST Provider Signature: Date: Thank you Wanda Desai Health Information Management Once completed, please kindly fax back to [phone] For questions please call [phone]
== END ==
LOC: C.LABCC 08:03
PROVIDERS: ATTEND Internal Medicine
DX: D64.9 Anemia, unspecified (principal)

== ENCOUNTER → 2017-03-15 | Outpatient (CLI) | payer OTHER ==
[~2017-03-15] MED LIST changes: -AZIT250T PO
[2017-03-15 09:40] LABS: URINE APPEARANCE CLEAR (CLEAR); URINE BILIRUBIN NEG (NEG); URINE COLOR YELLOW; URINE EPITHELIAL CELL AUTO 0-5 /lpf (0-5); URINE NITRITE NEG (NEG); URINE PH 7.5 (4.5-7.5); URINE SPECIFIC GRAVITY 1.019 (1.000-1.030); UROBILINOGEN NEG (NEG)
[2017-03-15 09:51] LABS: MANUAL MICROSCOPIC REQUIRED? NO; REVIEW REQ? NO
== END ==
LOC: C.LABCC 15:25
PROVIDERS: ATTEND Internal Medicine
DX: R29.6 Repeated falls (principal); R41.82 Altered mental status, unspecified

== ENCOUNTER → 2017-03-18 | Outpatient (CLI) | payer OTHER ==
[2017-03-18 08:42] LABS: HEMATOCRIT 37.5 % (37-47); MEAN CELL VOLUME 96.4 fL (80-100); MEAN CORPUSCULAR HEMOGLOBIN 31.4 pg (25-34); MEAN CORPUSCULAR HGB CONC 32.5 g/dl (32-36); MEAN PLATELET VOLUME 11.8 fL (7.4-10.4); PLATELET COUNT 192 K/uL (130-400); RED BLOOD COUNT 3.89 M/uL (4.2-5.4); WHITE BLOOD COUNT 5.49 K/uL (4.8-10.8)
[2017-03-18 09:05] LABS: BASO % 0.5 %; BASO ABS # 0.03 K/uL (0-0.2); COMPLETE YES; EOS % 3.6 %; IG% 0.2 %; LYMPH % 54.6 %; MONO % 7.7 %; NEUT % 33.4 %
== END | disposition home or self-care (01) ==
LOC: C.LABCC 08:29
PROVIDERS: ATTEND Internal Medicine
DX: D64.9 Anemia, unspecified (principal); R29.6 Repeated falls; R79.89 Other specified abnormal findings of blood chemistry

== ENCOUNTER → 2017-03-31 | Outpatient (CLI) | payer OTHER ==
[2017-03-31 09:11] LABS: URINE APPEARANCE CLEAR (CLEAR); URINE BILIRUBIN NEG (NEG); URINE COLOR YELLOW; URINE NITRITE NEG (NEG); URINE PH 6.5 (4.5-7.5); URINE SPECIFIC GRAVITY 1.022 (1.000-1.030); UROBILINOGEN NEG (NEG)
[2017-03-31 09:17] LABS: MANUAL MICROSCOPIC REQUIRED? NO; REVIEW REQ? NO
== END ==
LOC: C.LABCC 08:20
PROVIDERS: ATTEND Internal Medicine
DX: Z09 Encounter for follow-up examination after completed treatment for conditions other than malignant neoplasm (principal)

== ENCOUNTER → 2017-04-28 | Outpatient (CLI) | payer OTHER ==
[2017-04-29 02:31] LABS: URINE APPEARANCE CLOUDY (CLEAR); URINE BILIRUBIN NEG (NEG); URINE COLOR YELLOW; URINE EPITHELIAL CELL AUTO 20-30 /lpf (0-5); URINE NITRITE POS (NEG); UROBILINOGEN NEG (NEG)
[2017-04-29 02:51] LABS: MANUAL MICROSCOPIC REQUIRED? NO; REVIEW REQ? YES
== END ==
LOC: C.LABCC 23:00
PROVIDERS: ATTEND Internal Medicine
DX: R41.82 Altered mental status, unspecified (principal)

== ENCOUNTER 2017-06-30 14:56 | Emergency (ER) | payer OTHER ==
[~2017-06-30] VITALS: Ht 154.9 cm; Wt 47.1 kg
[~2017-06-30 14:56] MED LIST changes: +ACET-1346 PO; -ACET325T30 PO
[2017-06-30 15:28] VITALS: TEMP 37.1; Ht 154.9 cm; Wt 47.1 kg
--- NOTE | 2017-06-30 15:35 | EMERGENCY ROOM VISIT NOTE ---
History First contact with patient: 15:10 Chief Complaint: HIP PAIN Stated Complaint: FALL, L HIP PAIN History of Present Illness 76M with a PMHX of severe dementia presents to the ER from [facility] s/p fall. The chief historian is her (Adrian) who visits his approximately twice per day. She had a fall two weeks ago where she hit her head. She was found on the ground with a suspected fall yesterday. Portable imaging at [facility] revealed a possible non displaced fracture of the left hip. The orthopedic doctor wanted the pt to be evaluated through the ER before pursuing surgical intervention. Per Adrian states that the pt is at her mental status baseline. She will have intermittent periods of cognition. There is obvious trauma to the left face from her previous wall two weeks ago. THe patient is unable to provide any meaningful history. Documentation from [facility] was reviewed, from documentation and Adrian's story the fall was unwitnessed. Documentation revealed that the patient has had "painful transfers " after being found on the ground one day [employer] [employer]. ROS: Unable to determine accurate ROS due to pt's baseline medical condition. Pt does not respond when asked if she is in any pain. Code status was discussed with the , while he does not have POA he stated that the patient would not want chest compressions or intubation. He appears to be a reliable historian. At [facility] pt reports that the pt was DNR. stated that if there was a brain bleed pt would consider surgical intervention. Update Further history from the Adrian revealed that he nor the patient would want surgical intervention in the pt's current medical state. Adrian would like to pursue comfort measures regarding the patient and is most important concern is pain control. Review of Systems Unable to obtain due to patient's baseline medical condition. Past Medical/Surgical History Medical Problems: (1) Altered mental status (2) Benign hypertension (3) Bipolar disorder (4) Depressive disorder (5) Generalized non-convulsive epilepsy (6) Hypertension Nos (7) Seizure Family History Hypertension Social History Smoking Status: Unknown if Ever Smoked Alcohol Use: none Marital Status: Housing Status: intermediate Occupation Status: retired Current/Historical Medications Scheduled Cephalexin Monohydrate (Keflex), 1 CAP PO BID Cholecalciferol (Vitamin D3), 5,000 UNITS PO QAM Fludrocortisone Acetate (Florinef), 0.1 MG PO DAILY L-Methylfolate W/ Cyanocobalam (Cerefolin), 1 TAB PO QAM Potassium Chloride (Micro-K Ext Rel), 10 MEQ PO QAM Quetiapine Fumarate (Seroquel), 12.5 MG PO HS Ranitidine (Zantac), 150 MG PO HS Scheduled PRN Acetaminophen (Acetaminophen), 650 MG PO Q6H PRN for Pain or Fever Phenazopyridine Hcl (Pyridium), 1 TAB PO TID PRN for Pain Physical Exam Vital Signs Date Time Temp Pulse Resp B/P (MAP) Pulse Ox O2 Delivery O2 Flow Rate FiO2 06/30/17 21:21 83 18 145/105 94 06/30/17 19:20 98 06/30/17 17:56 99 22 93 06/30/17 17:31 108/83 06/30/17 17:02 154/103 06/30/17 17:01 94 20 154/103 92 Room Air 06/30/17 16:56 98 29 93 06/30/17 16:34 150/93 06/30/17 16:01 155/84 06/30/17 15:56 82 20 93 06/30/17 15:31 158/85 06/30/17 15:28 37.1 83 20 163/85 95 Room Air 06/30/17 15:20 82 06/30/17 15:16 37.1 83 20 163/85 95 Room Air 06/30/17 15:07 163/85 Physical Exam Gen: No acute distress. HEENT: Head - well healing hematoma of the left face, steri strip in place with well healing bleed, no signs of bleeding or other trauma to the skull. Pupils are equal, round, and reactive to light. Extraocular eye muscles are intact and sclera are anicteric. Ears - bilaterally patent canals with noninjected tympanic membranes and no evidence of hemotympanum. Nose - moist nasal mucosa without discharge. Mouth - moist buccal mucosa. Oropharynx is nonerythematous and there is no tonsillar exudate or edema noted. Neck: Supple; no JVD, nuchal rigidity, cervical lymphadenopathy, or auscultated bruits. Heart: Regular rate and rhythm. There is a normal S1 and S2 with no murmurs, clicks, or gallops appreciated. Lungs: Clear to auscultation bilaterally with no wheezes, rales, or rhonchi. Abdomen: Soft, completely nontender, nondistended, with good bowel sounds. There are no palpable pulsatile masses or hepatosplenomegaly. There is no guarding, rigidity, or rebound noted. Extremities: No evidence of cyanosis, clubbing, or edema. There are easily palpable peripheral pulses. Passive straight right leg raise to 45 degrees without any guarding. Guarding of the LLE on left hip flexion. No signs of trauma to the hips or the lower extremities bilaterally. No pain on applying pressure to the chest. No signs of trauma to the UE, FROM of the shoulders bilaterally. : Pt is wearing depends. Neuro:The patient is awake and alert, she cannot answer questions, she does eye track to person and voice. She cannot moved extremities to commands. Slight cogwheeling of the arms bilaterally. Medical Decision & Procedures ER Provider Diagnostic Interpretation: HEAD WITHOUT CONTRAST (CT) CT DOSE: 2224.65 mGycm HISTORY: Trauma. Mental status change. fall and severe dementia TECHNIQUE: Multiaxial CT images of the head were performed without the use of intravenous contrast. A dose lowering technique was utilized adhering to the principles of ALARA. Comparison: 08/23/2016 Findings: The paranasal sinuses and mastoid air cells are clear. The calvarium and skull base are intact. The ventricles and sulci are within normal limits. There is no mass, hematoma, midline shift, or acute infarct. Age-related atrophy and chronic small vessel change. Mild chronic compensatory prominence of the ventricular system. Impression: Chronic and age-related change. No acute intracranial abnormality. CERVICAL SPINE W/O CT DOSE: 397.78 mGycm HISTORY: Trauma fall and moderate dementia TECHNIQUE: Multiaxial CT images of the cervical spine were performed and reformatted in the sagittal and coronal plane without the use of contrast. A dose lowering technique was utilized adhering to the principles of ALARA. COMPARISON: None. FINDINGS: No fractures. No subluxation. Prevertebral soft tissues and the C1-C2 interval are intact. No pneumothorax. Considerable degenerative disc change throughout. Osteopenia. Prevertebral soft tissues are unremarkable. Degenerative changes C1-C2 complex. IMPRESSION: Considerable degenerative change. No acute process. L FEMUR 2 VIEWS ROUTINE CLINICAL HISTORY: LT LEG PAIN pain COMPARISON: None. DISCUSSION: Moderate degenerative change left hip. No acute bony abnormality. Cortical margins are intact. There is no evidence for soft tissue swelling. IMPRESSION: Moderate degenerative change left hip. No acute process specifically of the femur. If symptomatology persists, CT of the hips would be indicated. R PELVIS/UNILATERAL HIP 2-3VIEWS CLINICAL HISTORY: FALL LT HIP PAIN COMPARISON: None. DISCUSSION: Moderate degenerative change right hip. Potential subtle S abnormality of the contralateral left hip. No evidence for acetabular protrusion. Moderate degenerative change sacroiliac joints and symphysis pubis. There is no evidence for soft tissue swelling. IMPRESSION: 1. No acute process right hip. 2. Partial imaging of the contralateral left hip suggests a potential subcapital or femoral neck defect versus overlap artifact. 3. CT of the bony pelvis and hips is suggested as follow-up. ABD/PELVIS NO IV OR ORAL CONT CT DOSE: 229.35 mGy.cm HISTORY: Trauma suspected Left Hip Fx fall, non tender abdomen, eval for trauma TECHNIQUE: Multiaxial CT images of the abdomen and pelvis were performed without contrast. A dose lowering technique was utilized adhering to the principles of ALARA. COMPARISON STUDY: 03/25/2010 FINDINGS: The lung bases are clear. The unenhanced liver, spleen, gallbladder, pancreas, kidneys, and adrenal glands are within normal limits. No bowel wall thickening or obstruction. The pelvic organs are unremarkable. No suspicious lytic or blastic osseous lesions. Interval compression deformity T12. Slight retropulsion of the posterior margin of the vertebral body with mild impact upon the spinal canal. Estimated retropulsion is no more than 4 mm. Sonographic C slightly impacted fracture left hip. Moderate degenerative change of all remaining osseous structures. Several old lower right rib fractures. IMPRESSION: 1. Slightly impacted subcapital fracture left hip. 2. No evidence for acetabular protrusion. 3. Near complete compression deformity T12 not present on the prior exam. 4. Posterior retropulsion of the posterior margin of the T12 vertebral body approximately 4 mm. 5. No additional acute abnormality of the abdomen or pelvis. Laboratory Results 06/30/17 16:00 Red Blood Count 3.80, Mean Corpuscular Volume 93.4, Mean Corpuscular Hemoglobin 31.8, Mean Corpuscular Hemoglobin Concent 34.1, Mean Platelet Volume 10.6, Neutrophils (%) (Auto) 67.8, Lymphocytes (%) (Auto) 23.3, Monocytes (%) (Auto) 7.4, Eosinophils (%) (Auto) 1.2, Basophils (%) (Auto) 0.2, Neutrophils # (Auto) 5.68, Lymphocytes # (Auto) 1.95, Monocytes # (Auto) 0.62, Eosinophils # (Auto) 0.10, Basophils # (Auto) 0.02 06/30/17 16:00 Test 06/30/17 16:00 06/30/17 16:04 06/30/17 16:15 White Blood Count 8.38 K/uL (4.8-10.8) Red Blood Count 3.80 M/uL (4.2-5.4) Hemoglobin 12.1 g/dL (12.0-16.0) Hematocrit 35.5 % (37-47) Mean Corpuscular Volume 93.4 fL (80-100) Mean Corpuscular Hemoglobin 31.8 pg (25-34) Mean Corpuscular Hemoglobin Concent 34.1 g/dl (32-36) Platelet Count 205 K/uL (130-400) Mean Platelet Volume 10.6 fL (7.4-10.4) Neutrophils (%) (Auto) 67.8 % Lymphocytes (%) (Auto) 23.3 % Monocytes (%) (Auto) 7.4 % Eosinophils (%) (Auto) 1.2 % Basophils (%) (Auto) 0.2 % Neutrophils # (Auto) 5.68 K/uL (1.4-6.5) Lymphocytes # (Auto) 1.95 K/uL (1.2-3.4) Monocytes # (Auto) 0.62 K/uL (0.11-0.59) Eosinophils # (Auto) 0.10 K/uL (0-0.5) Basophils # (Auto) 0.02 K/uL (0-0.2) RDW Standard Deviation 45.0 fL (36.4-46.3) RDW Coefficient of Variation 13.2 % (11.5-14.5) Immature Granulocyte % (Auto) 0.1 % Immature Granulocyte # (Auto) 0.01 K/uL (0.00-0.02) Prothrombin Time 11.4 SECONDS (9.0-12.0) Prothromb Time International Ratio 1.1 (0.9-1.1) Activated Partial Thromboplast Time 29.0 SECONDS (21.0-31.0) Partial Thromboplastin Ratio 1.1 Anion Gap 7.0 mmol/L (3-11) Est Creatinine Clear Calc Drug Dose 53.1 ml/min Estimated GFR () 99.0 Estimated GFR (Non- 85.4 BUN/Creatinine Ratio 20.1 (10-20) Calcium Level 9.0 mg/dl (8.5-10.1) Bedside Troponin I < 0.030 ng/ml (0-0.045) Urine Color YELLOW Urine Appearance CLOUDY (CLEAR) Urine pH 7.0 (4.5-7.5) Urine Specific [place] 1.018 (1.000-1.030) Urine Protein NEG (NEG) Urine Glucose (UA) NEG (NEG) Urine Ketones NEG (NEG) Urine Occult Blood NEG (NEG) Urine Nitrite POS (NEG) Urine Bilirubin NEG (NEG) Urine Urobilinogen NEG (NEG) Urine Leukocyte Esterase NEG (NEG) Urine WBC (Auto) 5-10 /hpf (0-5) Urine RBC (Auto) 0-4 /hpf (0-4) Urine Hyaline Casts (Auto) 1-5 /lpf (0-5) Urine Epithelial Cells (Auto) >30 /lpf (0-5) Urine Bacteria (Auto) 4+ (NEG) Medications Administered Medications (Trade) Dose Ordered Sig/Selene Route Start Time Stop Time Status Last Admin Dose Admin Morphine Sulfate (MoRPHine SULFATE INJ) 2 mg Q60M PRN IV 06/30/17 15:45 06/30/17 21:31 DC 1/23/18 16:59 2 MG Sodium Chloride 1,000 ml @ 45 mls/hr [id number] IV 06/30/17 16:00 06/30/17 21:31 DC 06/30/17 17:00 45 MLS/HR Ceftriaxone Sodium (Rocephin Inj) 1 gm NOW STAT IV 06/30/17 17:49 06/30/17 17:58 DC 06/30/17 18:31 1 GM Acetaminophen (Tylenol Tab) 1,000 mg STK-MED ONCE PO 06/30/17 20:00 06/30/17 20:01 DC 06/30/17 20:02 1,000 MG Phenazopyridine HCl (Pyridium Tab) 200 mg STK-MED ONCE PO 06/30/17 20:00 06/30/17 20:01 DC 06/30/17 20:02 200 MG ED Course Telephone Consult with Dr. Bal (ortho) regarding the Left Hip Fracture: Patient is OK to get up to chair. Heel Precautions. Decubitus precautions. Dr. Bal offered follow up in his clinic in two weeks if family wishes. Medical Decision The patient's care and disposition was discussed with Dr. Coombs and Dr. Romero , Attending ED Physicians. This is a 76F with severe dementia p/w an unwitnessed fall and a possible non displaced left hip Fx from imaging done at [facility]. Differential diagnosis include vasovagal event, infection, hypoglycemia, electrolyte abnormalities, cardiac sources, intracerebral event, toxicologic, neurologic, as well as others were entertained. Triage Nursing notes were reviewed. ED Course included an extensive history and physical exam, labs, EKG and imaging. EKG reviewed - NSR with a rate of 81, no ST changes, no ectopy. CBC is within normal limits. POC Troponin was negative. COAGS are within normal limits. UA showing infection, 1 g of Rocephin was ordered. 3:15pm - Pt was examined by the Resident. 3:45 - Pt was discussed with Dr. Coombs and initial orders were placed. 4:30 - CT Head and Neck was reviewed and showed no acute pathology. 5:00 - CT Abdo and Pelvis was ordered. 5:50 - 1gram of Rocephin was ordered for UTI. 6:45 - spoke to regarding the left hip fx and T12 compression fracture, per he does not want any surgical interventions. 7:00 - spoke to hospice case manager, pages to Dr. Kraft (spine) and Dr. Bal are outgoing for any non surgical management options. 7:50 - Discussed case with , Adrian, the plan will be comfort measures with a focus on pain control. Adrian does not want his to be in any pain nor does he want her to have any surgeries. 8:00 - Transport to [facility] was arranged with an Rx for Keflex for her UTI and AZO for symptomatic dysuria. Per Adrian he would like to pursue comfort cart regarding Lewis. He does not want any surgeries. This was discussed with Adrian at least 3 times. Adrian's desire is to focus on pain control. Adrian had a conversation regarding palliative with staff at [facility] a few months ago and he didn't think Lewis was ready for comfort measures, however he does feel that it is more appropriate to focus on end of life care with Lewis current mental status. All questions were answered. Patient was discharged to [facility] in good condition. Impression Primary Impression: Dementia Additional Impression: Hip fracture, left Departure Information Dispostion Rehab Inpatient Facility ([facility]) Condition FAIR Prescriptions Phenazopyridine Hcl (PYRIDIUM) 200 Mg Tab 1 TAB PO TID Y for Pain for 2 Days, #6 TAB Prov: Adalid Leahy M.D. 06/30/17 Cephalexin Monohydrate (Keflex) 500 Mg Cap 1 CAP PO BID for 7 Days, #14 CAP Prov: Adalid Leahy M.D. 06/30/17 [facility] Patient Instructions Care Palliative, [facility] Additional Instructions The imaging we obtained showed a hip fracture in your left hip and a possible compression fracture in your T12 vertebrae. The urine analysis also showed a possible UTI. You were given 1g of Rocephin in the ER and will be discharged on a course of Keflex for your UTI. After discussing the situation with your Adrian it was decided that you would not want any surgeries in your present medical condition. The Orthopedic Surgeon and the Orthopedic Spine surgeon were called over telephone to discuss non surgical management options. Regarding the left hip fracture, the orthopedic doctor stated that it is OK to sit in a chair at bedside. He also recommended the precautions be taken against the formation of decubitus ulcers. If the hip pain becomes uncontrollable or if you would like to schedule a follow up appointment regarding surgical options, the orthopedic doctor, Dr. Slava Bal, would be happy to see you in his clinic. Dr. Slava Bal's Office is: Address: [facility] [place] [address] The Orthopedic Spine Team (Dr. Kraft) recommended pain control and recommended against the use of a back brace. You may continue to use Tylenol 650mg Q6H PRN For pain. You will also be prescribed AZO for symptomatic UTI symptoms. [facility] will also be able to further manage your pain needs. Resident Involvement: Resident Care Provided Care Provided: Adult ED Problem Qualifiers
[2017-06-30] MEDS ORDERED: MoRPHine SULFATE 2 MG/ML CARP IV PRN (15:45)
[2017-06-30] MEDS ORDERED: FLUD0.1T10 PO (15:58)
[2017-06-30] MEDS ORDERED: SODIUM CHLORIDE 0.9% 1000ML 1,000 ML IV SCH (16:00)
[2017-06-30 16:15] LABS: BASO % 0.2 %; BASO ABS # 0.02 K/uL (0-0.2); EOS % 1.2 %; HEMATOCRIT 35.5 % (37-47); HEMOGLOBIN 12.1 g/dL (12.0-16.0); IG# 0.01 K/uL (0.00-0.02); LYMPH % 23.3 %; LYMPH ABS # 1.95 K/uL (1.2-3.4); MEAN CELL VOLUME 93.4 fL (80-100); MEAN CORPUSCULAR HEMOGLOBIN 31.8 pg (25-34); MEAN CORPUSCULAR HGB CONC 34.1 g/dl (32-36); MEAN PLATELET VOLUME 10.6 fL (7.4-10.4); MONO % 7.4 %; MONO ABS # 0.62 K/uL (0.11-0.59); NEUT % 67.8 %; NEUT ABS # 5.68 K/uL (1.4-6.5); PLATELET COUNT 205 K/uL (130-400); RED CELL DISTRIBUTION WIDTH CV 13.2 % (11.5-14.5); WHITE BLOOD COUNT 8.38 K/uL (4.8-10.8)
[2017-06-30 16:25] LABS: INR 1.1 (0.9-1.1)
--- NOTE | 2017-06-30 16:32 | DIAGNOSTIC IMAGING REPORT ---
HEAD WITHOUT CONTRAST (CT) CT DOSE: 2224.65 mGycm HISTORY: Trauma. Mental status change. fall and severe dementia TECHNIQUE: Multiaxial CT images of the head were performed without the use of intravenous contrast. A dose lowering technique was utilized adhering to the principles of ALARA. Comparison: 08/23/2016 Findings: The paranasal sinuses and mastoid air cells are clear. The calvarium and skull base are intact. The ventricles and sulci are within normal limits. There is no mass, hematoma, midline shift, or acute infarct. Age-related atrophy and chronic small vessel change. Mild chronic compensatory prominence of the ventricular system. Impression: Chronic and age-related change. No acute intracranial abnormality. The above report was generated using voice recognition software. It may contain grammatical, syntax or spelling errors. Electronically signed by: Adalid Berman M.D. 06/30/2017 4:30 PM Dictated Date/Time: 06/30/2017 4:29 PM
--- NOTE | 2017-06-30 16:34 | DIAGNOSTIC IMAGING REPORT ---
CERVICAL SPINE W/O CT DOSE: 397.78 mGycm HISTORY: Trauma fall and moderate dementia TECHNIQUE: Multiaxial CT images of the cervical spine were performed and reformatted in the sagittal and coronal plane without the use of contrast. A dose lowering technique was utilized adhering to the principles of ALARA. COMPARISON: None. FINDINGS: No fractures. No subluxation. Prevertebral soft tissues and the C1-C2 interval are intact. No pneumothorax. Considerable degenerative disc change throughout. Osteopenia. Prevertebral soft tissues are unremarkable. Degenerative changes C1-C2 complex. IMPRESSION: Considerable degenerative change. No acute process. The above report was generated using voice recognition software. It may contain grammatical, syntax or spelling errors. Electronically signed by: Adalid Berman M.D. 06/30/2017 4:32 PM Dictated Date/Time: 06/30/2017 4:30 PM
[2017-06-30 16:38] LABS: CREATININE 0.67 mg/dl (0.60-1.20); POTASSIUM 3.5 mmol/L (3.5-5.1)
--- NOTE | 2017-06-30 16:41 | EMERGENCY ROOM VISIT NOTE ---
History Report prepared by Aldo: Ponce Noble Under the Supervision of: Dr. Naren Coombs M.D. First contact with patient: 15:10 Chief Complaint: HIP PAIN Stated Complaint: FALL, L HIP PAIN History of Present Illness The patient is a 76 year old female who presents to the Emergency Room with complaints of left hip pain s/p mechanical fall that happened 1 day ago. Per her , the patient fell again 2 weeks ago with a head strike and also had visual changes. He states that she has dementia and is currently more confused than her baseline. Pt denies LOC, headache, fevers, chills, diaphoresis, neck pain, chest pain, breathing difficulties, nausea, vomiting, abdominal pain, back pain, melena, hematochezia, urinary symptoms, numbness, weakness, lymphadenopathy, rash, or other complaints. Source of History: patient, spouse/significant other Onset: 1 day ago Position: other (R hip pain) Timing: resolved (epsiode of falling) Note: Patient's states patient has had visual changes. Review of Systems See HPI for pertinent positives and negatives. A total of ten systems were reviewed and were otherwise negative. Past Medical & Surgical Medical Problems: (1) Altered mental status (2) Benign hypertension (3) Bipolar disorder (4) Depressive disorder (5) Generalized non-convulsive epilepsy (6) Hypertension Nos (7) Seizure Family History Hypertension Social History Smoking Status: Unknown if Ever Smoked Alcohol Use: none Marital Status: Housing Status: long term Occupation Status: retired Current/Historical Medications Scheduled Cephalexin Monohydrate (Keflex), 1 CAP PO BID Cholecalciferol (Vitamin D3), 5,000 UNITS PO QAM Fludrocortisone Acetate (Florinef), 0.1 MG PO DAILY L-Methylfolate W/ Cyanocobalam (Cerefolin), 1 TAB PO QAM Potassium Chloride (Micro-K Ext Rel), 10 MEQ PO QAM Quetiapine Fumarate (Seroquel), 12.5 MG PO HS Ranitidine (Zantac), 150 MG PO HS Scheduled PRN Acetaminophen (Acetaminophen), 650 MG PO Q6H PRN for Pain or Fever Phenazopyridine Hcl (Pyridium), 1 TAB PO TID PRN for Pain Allergies Coded Allergies: No Known Allergies (Unverified , 1/23/18) Physical Exam Vital Signs Date Time Temp Pulse Resp B/P (MAP) Pulse Ox O2 Delivery O2 Flow Rate FiO2 06/30/17 21:21 83 18 145/105 94 06/30/17 19:20 98 06/30/17 17:56 99 22 93 06/30/17 17:31 108/83 06/30/17 17:02 154/103 06/30/17 17:01 94 20 154/103 92 Room Air 06/30/17 16:56 98 29 93 06/30/17 16:34 150/93 06/30/17 16:01 155/84 06/30/17 15:56 82 20 93 06/30/17 15:31 158/85 06/30/17 15:28 37.1 83 20 163/85 95 Room Air 06/30/17 15:20 82 06/30/17 15:16 37.1 83 20 163/85 95 Room Air 06/30/17 15:07 163/85 Physical Exam GENERAL: Awake, alert, well-appearing, in no distress. Nonverbal, demented at her baseline; her at bedside HENT: Normocephalic. Resolving left maxillary sub acute contusion. Oropharynx unremarkable. EYES: Normal conjunctiva. Sclera non-icteric. NECK: Supple. No nuchal rigidity. FROM. No JVD. RESPIRATORY: Clear to auscultation. CARDIAC: Regular rate, normal rhythm. Extremities warm and well perfused. Pulses equal. ABDOMEN: Soft, non-distended. No tenderness to palpation. No rebound or guarding. No masses. RECTAL: Deferred. MUSCULOSKELETAL: Chest examination reveals no tenderness. The back is symmetrical on inspection without obvious abnormality. There is no CVA tenderness to palpation. No joint edema. No tenderness or step offs throughout CT and L spine. LOWER EXTREMITIES: Calves are equal size bilaterally and non-tender. No edema. No discoloration. Mild discomfort at bilateral inguinal areas upon palpation. NEURO: Normal sensorium. No sensory or motor deficits noted. SKIN: No rash or jaundice noted. Medical Decision & Procedures ER Provider Diagnostic Interpretation: Radiology results as stated below per my review and radiologist interpretation: HEAD WITHOUT CONTRAST (CT) CT DOSE: 2224.65 mGycm HISTORY: Trauma. Mental status change. fall and severe dementia TECHNIQUE: Multiaxial CT images of the head were performed without the use of intravenous contrast. A dose lowering technique was utilized adhering to the principles of ALARA. Comparison: 08/23/2016 Findings: The paranasal sinuses and mastoid air cells are clear. The calvarium and skull base are intact. The ventricles and sulci are within normal limits. There is no mass, hematoma, midline shift, or acute infarct. Age-related atrophy and chronic small vessel change. Mild chronic compensatory prominence of the ventricular system. Impression: Chronic and age-related change. No acute intracranial abnormality. The above report was generated using voice recognition software. It may contain grammatical, syntax or spelling errors. Electronically signed by: Adalid Berman M.D. 06/30/2017 4:30 PM Dictated Date/Time: 06/30/2017 4:29 PM CERVICAL SPINE W/O CT DOSE: 397.78 mGycm HISTORY: Trauma fall and moderate dementia TECHNIQUE: Multiaxial CT images of the cervical spine were performed and reformatted in the sagittal and coronal plane without the use of contrast. A dose lowering technique was utilized adhering to the principles of ALARA. COMPARISON: None. FINDINGS: No fractures. No subluxation. Prevertebral soft tissues and the C1-C2 interval are intact. No pneumothorax. Considerable degenerative disc change throughout. Osteopenia. Prevertebral soft tissues are unremarkable. Degenerative changes C1-C2 complex. IMPRESSION: Considerable degenerative change. No acute process. The above report was generated using voice recognition software. It may contain grammatical, syntax or spelling errors. Electronically signed by: Adalid Berman M.D. 06/30/2017 4:32 PM Dictated Date/Time: 06/30/2017 4:30 PM Laboratory Results 06/30/17 16:00 Red Blood Count 3.80, Mean Corpuscular Volume 93.4, Mean Corpuscular Hemoglobin 31.8, Mean Corpuscular Hemoglobin Concent 34.1, Mean Platelet Volume 10.6, Neutrophils (%) (Auto) 67.8, Lymphocytes (%) (Auto) 23.3, Monocytes (%) (Auto) 7.4, Eosinophils (%) (Auto) 1.2, Basophils (%) (Auto) 0.2, Neutrophils # (Auto) 5.68, Lymphocytes # (Auto) 1.95, Monocytes # (Auto) 0.62, Eosinophils # (Auto) 0.10, Basophils # (Auto) 0.02 06/30/17 16:00 Test 06/30/17 16:00 06/30/17 16:04 06/30/17 16:15 White Blood Count 8.38 K/uL (4.8-10.8) Red Blood Count 3.80 M/uL (4.2-5.4) Hemoglobin 12.1 g/dL (12.0-16.0) Hematocrit 35.5 % (37-47) Mean Corpuscular Volume 93.4 fL (80-100) Mean Corpuscular Hemoglobin 31.8 pg (25-34) Mean Corpuscular Hemoglobin Concent 34.1 g/dl (32-36) Platelet Count 205 K/uL (130-400) Mean Platelet Volume 10.6 fL (7.4-10.4) Neutrophils (%) (Auto) 67.8 % Lymphocytes (%) (Auto) 23.3 % Monocytes (%) (Auto) 7.4 % Eosinophils (%) (Auto) 1.2 % Basophils (%) (Auto) 0.2 % Neutrophils # (Auto) 5.68 K/uL (1.4-6.5) Lymphocytes # (Auto) 1.95 K/uL (1.2-3.4) Monocytes # (Auto) 0.62 K/uL (0.11-0.59) Eosinophils # (Auto) 0.10 K/uL (0-0.5) Basophils # (Auto) 0.02 K/uL (0-0.2) RDW Standard Deviation 45.0 fL (36.4-46.3) RDW Coefficient of Variation 13.2 % (11.5-14.5) Immature Granulocyte % (Auto) 0.1 % Immature Granulocyte # (Auto) 0.01 K/uL (0.00-0.02) Prothrombin Time 11.4 SECONDS (9.0-12.0) Prothromb Time International Ratio 1.1 (0.9-1.1) Activated Partial Thromboplast Time 29.0 SECONDS (21.0-31.0) Partial Thromboplastin Ratio 1.1 Anion Gap 7.0 mmol/L (3-11) Est Creatinine Clear Calc Drug Dose 53.1 ml/min Estimated GFR () 99.0 Estimated GFR (Non- 85.4 BUN/Creatinine Ratio 20.1 (10-20) Calcium Level 9.0 mg/dl (8.5-10.1) Bedside Troponin I < 0.030 ng/ml (0-0.045) Urine Color YELLOW Urine Appearance CLOUDY (CLEAR) Urine pH 7.0 (4.5-7.5) Urine Specific [place] 1.018 (1.000-1.030) Urine Protein NEG (NEG) Urine Glucose (UA) NEG (NEG) Urine Ketones NEG (NEG) Urine Occult Blood NEG (NEG) Urine Nitrite POS (NEG) Urine Bilirubin NEG (NEG) Urine Urobilinogen NEG (NEG) Urine Leukocyte Esterase NEG (NEG) Urine WBC (Auto) 5-10 /hpf (0-5) Urine RBC (Auto) 0-4 /hpf (0-4) Urine Hyaline Casts (Auto) 1-5 /lpf (0-5) Urine Epithelial Cells (Auto) >30 /lpf (0-5) Urine Bacteria (Auto) 4+ (NEG) Laboratory results reviewed by me Medications Administered Medications (Trade) Dose Ordered Sig/Selene Route Start Time Stop Time Status Last Admin Dose Admin Morphine Sulfate (MoRPHine SULFATE INJ) 2 mg Q60M PRN IV 06/30/17 15:45 06/30/17 21:31 DC 06/30/17 16:59 2 MG Sodium Chloride 1,000 ml @ 45 mls/hr [id number] IV 06/30/17 16:00 06/30/17 21:31 DC 06/30/17 17:00 45 MLS/HR Ceftriaxone Sodium (Rocephin Inj) 1 gm NOW STAT IV 06/30/17 17:49 06/30/17 17:58 DC 06/30/17 18:31 1 GM Acetaminophen (Tylenol Tab) 1,000 mg STK-MED ONCE PO 06/30/17 20:00 06/30/17 20:01 DC 06/30/17 20:02 1,000 MG Phenazopyridine HCl (Pyridium Tab) 200 mg STK-MED ONCE PO 06/30/17 20:00 06/30/17 20:01 DC 06/30/17 20:02 200 MG ECG Indication: other (Hip pain) Rate (beats per minute): 81 Rhythm: normal sinus Findings: no acute ischemic change, other (Normal axis) ED Course 1510: The patient was evaluated in room B8. A complete history and physical exam was performed. Medical Decision I reviewed the patient's past medical history, medications, and the nursing notes as described above. The patient's presentation and history were concerning for Fracture, soft tissue injury, ligamentous injury, syncope, ACS, PNA, bronchitis, dehydration, electrolyte abnormalities, UTI, ICH among others. The patient is a 76-year-old woman with a past medical history of dementia who presents from her [facility] facility after having an unwitnessed fall a question of an outpatient x-ray concerning for possible hip fracture per hpi. Arrival the patient continues to be demented at her baseline, nonverbal per at bedside. Otherwise patient is in no acute distress, afebrile with stable vital signs. 5/5 strength BLE and SILT. Of note the patient did have a remote fall 2 weeks ago per she hit her head but did not go to the emergency department. CT head and C-spine unremarkable. Labs notable for positive nitrites consistent in UA consistent with UTI. Otherwise WBC within normal limits. CT abdomen and pelvis demonstrates slightly impacted subcapital fracture left hip as well as near complete compression fx of T12 vert body with 4mm retropulsion. These findings were reviewed with the by myself and the resident and the expresses that they would not want any surgery for these findings and his focus will be to keep her comfortable that he may continue to visit with her and transfer her to a wheelchair to go outside when possible. Thus plan to discuss findings with orthospine and general ortho for recommendations in setting of family wishes to focus on comfort. Anticipate the patient will be d/c'd back to her facility with Rx for Keflex and pain control. Resident d/w ortho, Dr. Bal, regarding hip and ortho-spine, Dr. Kraft, regarding spine. Recs per resident note. I discussed the case with the resident physician, examined the patient, and agree with the findings and plan as documented in the residents note unless otherwise clarified here by me. Medication Reconcilliation Current Medication List: was personally reviewed by me Blood Pressure Screening Patient's blood pressure: Elevated blood pressure Blood pressure disposition: Elevated BP felt to be situational Impression Primary Impression: Compression fx, thoracic spine Additional Impressions: Subcapital fracture of left hip UTI (urinary tract infection) Scribe Attestation The scribe's documentation has been prepared under my direction and personally reviewed by me in its entirety. I confirm that the note above accurately reflects all work, treatment, procedures, and medical decision making performed by me. Departure Information Dispostion Admitted as an inpatient Prescriptions Phenazopyridine Hcl (PYRIDIUM) 200 Mg Tab 1 TAB PO TID Y for Pain for 2 Days, #6 TAB Prov: Adalid Leahy M.D. 06/30/17 Cephalexin Monohydrate (Keflex) 500 Mg Cap 1 CAP PO BID for 7 Days, #14 CAP Prov: Adalid Leahy M.D. 06/30/17 Referrals Joseph Lei M.D. (PCP) Patient Instructions My [facility] Problem Qualifiers
[2017-06-30] MEDS ORDERED: CEFTRIAXONE SOD INJ 1 GM ADDVIAL IV STA (17:49)
--- NOTE | 2017-06-30 17:51 | DIAGNOSTIC IMAGING REPORT ---
L FEMUR 2 VIEWS ROUTINE CLINICAL HISTORY: LT LEG PAIN pain COMPARISON: None. DISCUSSION: Moderate degenerative change left hip. No acute bony abnormality. Cortical margins are intact. There is no evidence for soft tissue swelling. IMPRESSION: Moderate degenerative change left hip. No acute process specifically of the femur. If symptomatology persists, CT of the hips would be indicated. The above report was generated using voice recognition software. It may contain grammatical, syntax or spelling errors. Electronically signed by: Adalid Berman M.D. 06/30/2017 5:50 PM Dictated Date/Time: 06/30/2017 5:48 PM
--- NOTE | 2017-06-30 17:52 | DIAGNOSTIC IMAGING REPORT ---
R PELVIS/UNILATERAL HIP 2-3VIEWS CLINICAL HISTORY: FALL LT HIP PAIN COMPARISON: None. DISCUSSION: Moderate degenerative change right hip. Potential subtle S abnormality of the contralateral left hip. No evidence for acetabular protrusion. Moderate degenerative change sacroiliac joints and symphysis pubis. There is no evidence for soft tissue swelling. IMPRESSION: 1. No acute process right hip. 2. Partial imaging of the contralateral left hip suggests a potential subcapital or femoral neck defect versus overlap artifact. 3. CT of the bony pelvis and hips is suggested as follow-up. The above report was generated using voice recognition software. It may contain grammatical, syntax or spelling errors. Electronically signed by: Adalid Berman M.D. 06/30/2017 5:51 PM Dictated Date/Time: 06/30/2017 5:50 PM
--- NOTE | 2017-06-30 18:19 | DIAGNOSTIC IMAGING REPORT ---
CHEST ONE VIEW PORTABLE CLINICAL HISTORY: fall, dementia and AMS trauma COMPARISON STUDY: 08/25/2016 FINDINGS: Mild stable cardiomegaly. Mild tortuosity thoracic aorta. Lungs are clear. Diaphragms smooth. IMPRESSION: No acute process. The above report was generated using voice recognition software. It may contain grammatical, syntax or spelling errors. Electronically signed by: Adalid Berman M.D. 06/30/2017 6:18 PM Dictated Date/Time: 06/30/2017 6:17 PM
--- NOTE | 2017-06-30 18:19 | DIAGNOSTIC IMAGING REPORT ---
ABD/PELVIS NO IV OR ORAL CONT CT DOSE: 229.35 mGy.cm HISTORY: Trauma suspected Left Hip Fx fall, non tender abdomen, eval for trauma TECHNIQUE: Multiaxial CT images of the abdomen and pelvis were performed without contrast. A dose lowering technique was utilized adhering to the principles of ALARA. COMPARISON STUDY: 03/25/2010 FINDINGS: The lung bases are clear. The unenhanced liver, spleen, gallbladder, pancreas, kidneys, and adrenal glands are within normal limits. No bowel wall thickening or obstruction. The pelvic organs are unremarkable. No suspicious lytic or blastic osseous lesions. Interval compression deformity T12. Slight retropulsion of the posterior margin of the vertebral body with mild impact upon the spinal canal. Estimated retropulsion is no more than 4 mm. Sonographic C slightly impacted fracture left hip. Moderate degenerative change of all remaining osseous structures. Several old lower right rib fractures. IMPRESSION: 1. Slightly impacted subcapital fracture left hip. 2. No evidence for acetabular protrusion. 3. Near complete compression deformity T12 not present on the prior exam. 4. Posterior retropulsion of the posterior margin of the T12 vertebral body approximately 4 mm. 5. No additional acute abnormality of the abdomen or pelvis. The above report was generated using voice recognition software. It may contain grammatical, syntax or spelling errors. Electronically signed by: Adalid Berman M.D. 06/30/2017 6:17 PM Dictated Date/Time: 06/30/2017 6:10 PM
[2017-06-30] MEDS ORDERED: ACETAMINOPHEN 500 MG TAB PO STA (19:46)
[2017-06-30] MEDS ORDERED: PHENAZOPYRIDINE HCL 200 MG TAB PO STA (19:46)
[2017-06-30] MEDS ORDERED: ACETAMINOPHEN 500 MG TAB PO ONE (20:00)
[2017-06-30] MEDS ORDERED: PHENAZOPYRIDINE HCL 200 MG TAB PO ONE (20:00)
[2017-06-30] MEDS ORDERED: CEPH500C PO (21:14)
[2017-06-30] MEDS ORDERED: PHEN-775 PO (21:14)
[2017-06-30 21:21] VITALS: BP 145/105; PULSE 83; O2SAT 94
--- NOTE | 2017-07-03 13:04 | Pharmacy Progress Note ---
ED Pharmacist Culture FollowUp Date of Service: Jul 03, 2017. Patient was sent home with a prescription for cephalexin, which should cover the E. coli and alpha strep growing from the patient's urine culture.
== END 2017-06-30 21:15 | disposition home or self-care (01) ==
LOC: EDBD 14:56 → C.EDB 14:58
DX: S72.092A Other fracture of head and neck of left femur, initial encounter for closed fracture (principal); M16.12 Unilateral primary osteoarthritis, left hip; W19.XXXA Unspecified fall, initial encounter; Y92.128 Other place in nursing home as the place of occurrence of the external cause; F03.90 Unspecified dementia, unspecified severity, without behavioral disturbance, psychotic disturbance, mood disturbance, and anxiety; I10 Essential (primary) hypertension; F31.9 Bipolar disorder, unspecified; G40.909 Epilepsy, unspecified, not intractable, without status epilepticus; R41.82 Altered mental status, unspecified